=== PATIENT | female | born 1965 | race Caucasian/White ===

== ENCOUNTER 2019-04-05 09:44 | Outpatient (CLI) | payer BC, SELFPAY ==
[2019-04-05 11:00] LABS: Alanine Aminotransferase 20 U/L (0-33); Albumin Level 4.5 g/dL (3.5-5.2); Alkaline Phosphatase 64 IU/L (35-105); Anion Gap 13.7 (5-19); Aspartate Amino Transferase 18 U/L (0-32); Blood Urea Nitrogen 18 mg/dL (6-20); C Reactive Protein 0.6 mg/L (0.0-4.9); Calcium 9.4 mg/dL (8.5-10.5); Carbon Dioxide 28 mmol/L (22-29); Chloride 100 mmol/L (98-107); Globulin 2.8 g/dL (1.3-4.6); Glucose 113 mg/dL (74-109); Potassium 3.7 mmol/L (3.5-5.1); Sodium 138 mmol/L (136-145); Total Bilirubin 0.2 mg/dL (0.15-1.2); Total Protein 7.3 g/dL (6.6-8.7)
[2019-04-05 11:13] LABS: Erythrocyte Sedimentation Rate 13 mm/hr (0-15)
== END 2019-04-05 09:45 | disposition home or self-care (01) ==
LOC: LAB 09:48
PROVIDERS: Family Provider Family Medicine; PCP Family Medicine; Visit Provider Family Medicine
DX: G56.20 Lesion of ulnar nerve, unspecified upper limb (principal); G89.4 Chronic pain syndrome
CPT/HCPCS: 36415; 80053; 85651; 86038; 86140; 86431

== ENCOUNTER → 2019-04-19 10:20 | Outpatient (BNVA) | payer BC, SELFPAY | PROVIDERS: Family Provider Family Medicine; PCP Family Medicine; Visit Provider Nurse Practitioner Family | DX: J11.1 Influenza due to unidentified influenza virus with other respiratory manifestations (principal); J06.9 Acute upper respiratory infection, unspecified | CPT/HCPCS: 87804 ==

== ENCOUNTER → 2019-07-25 15:06 | Outpatient (BNVA) | payer BC, SELFPAY | PROVIDERS: Family Provider Family Medicine; PCP Family Medicine; Visit Provider Internal Medicine Rheumatology | DX: M25.50 Pain in unspecified joint (principal); Z79.899 Other long term (current) drug therapy; Z11.59 Encounter for screening for other viral diseases; Z11.1 Encounter for screening for respiratory tuberculosis; M79.7 Fibromyalgia; Z72.89 Other problems related to lifestyle | CPT/HCPCS: 36415; 80076; 82306; 82565; 85025; 85651; 86038; 86140; 86480; 86704; 86803; 87340; 99204 ==

== ENCOUNTER 2019-07-26 14:27 | Outpatient (CLI) | payer BC, SELFPAY ==
--- NOTE | 2019-07-26 14:35 | XR_ITS ---
WS: [id number] PROCEDURE: XR chest 2V* [id number] CLINICAL INFORMATION: inflammatory arthritis COMPARISON: February 26, 2018 FINDINGS: Heart: Normal cardiac silhouette. Lungs: Mild chronic emphysematous changes. No acute pulmonary infiltrates. No focal pneumonia. Bones: Postoperative changes lower cervical spine. XR/XR chest 2V* [id number] IMPRESSION: Mild chronic emphysematous changes. No acute chest findings.
--- NOTE | 2019-07-26 14:35 | XR_ITS ---
WS: [id number] HAND RIGHT TECHNIQUE: 3 views of the right hand CLINICAL INFORMATION: inflammatory arthritis COMPARISON: None. FINDINGS: Normal metacarpals. Normal MCP joint. Metacarpal heads are normal in appearance. Normal PIP and DIP j oints. No significant erosive changes. Radiocarpal joint: Normal. Carpal bones: Normal. XR/XR hand RT min 3V* [id number] IMPRESSION: No significant erosive changes.
--- NOTE | 2019-07-26 14:35 | XR_ITS ---
WS: [id number] FOOT LEFT TECHNIQUE: 3 views of the left foot CLINICAL INFORMATION: inflammatory arthritis COMPARISON: None. FINDINGS: No evidence of acute fracture or dislocation. Normal tarsal metatarsal alignment. Normal calcaneus. N ormal visualized talar dome. No significant erosive changes. Plantar calcaneal spurring. IMPRESSION: No significant erosive changes.
--- NOTE | 2019-07-26 14:35 | XR_ITS ---
WS: [id number] FOOT RIGHT TECHNIQUE: 3 views of the right foot CLINICAL INFORMATION: inflammatory arthritis COMPARISON: None. FINDINGS: No evidence of acute fracture or dislocation. Normal tarsal metatarsal alignment. Normal calcaneus. N ormal visualized talar dome. Plantar calcaneal spurring. IMPRESSION: No significant erosive changes.
--- NOTE | 2019-07-26 14:35 | XR_ITS ---
WS: [id number] HAND LEFT TECHNIQUE: 3 views of the left hand CLINICAL INFORMATION: inflammatory arthritis COMPARISON: None. FINDINGS: Normal metacarpals. Normal MCP joint. Metacarpal heads are normal in appearance. Normal PIP and DIP j oints. No significant erosive changes. Radiocarpal joint: Normal. Carpal bones: Normal. XR/XR hand LT min 3V* [id number] IMPRESSION: No significant erosive changes.
== END 2019-07-26 14:28 | disposition home or self-care (01) ==
LOC: RADWPI 14:30
PROVIDERS: Family Provider Family Medicine; PCP Family Medicine; Visit Provider Internal Medicine Rheumatology
DX: M13.89 Other specified arthritis, multiple sites
CPT/HCPCS: 71046; 73130; 73630

== ENCOUNTER → 2019-08-30 13:50 | Outpatient (BNVA) | payer BC, SELFPAY | PROVIDERS: Family Provider Family Medicine; PCP Family Medicine; Visit Provider Internal Medicine Rheumatology | DX: M79.7 Fibromyalgia (principal); M25.50 Pain in unspecified joint; Z79.899 Other long term (current) drug therapy | CPT/HCPCS: 99214 ==

== ENCOUNTER 2019-10-04 10:24 | Outpatient (CLI) | payer BC, SELFPAY ==
[2019-10-04 11:22] LABS: Alanine Aminotransferase 35 U/L (0-33); Albumin Level 4.4 g/dL (3.5-5.2); Alkaline Phosphatase 58 IU/L (35-105); Aspartate Amino Transferase 27 U/L (0-32); Cholesterol 143 mg/dL (0-200); HDL Cholesterol 51 mg/dL (60-100); LDL Cholesterol Calculated 75 mg/dL (50-129); LDL HDL Ratio 1.47 RATIO (0.00-3.22); Total Bilirubin 0.3 mg/dL (0.15-1.2); Total Protein 7.4 g/dL (6.6-8.7); Triglycerides 85 mg/dL (0-150)
== END 2019-10-04 10:25 | disposition home or self-care (01) ==
LOC: LAB 10:30
PROVIDERS: PCP Family Medicine; Visit Provider Internal Medicine Cardiovascular Disease
DX: E78.2 Mixed hyperlipidemia (principal); I10 Essential (primary) hypertension
CPT/HCPCS: 80061; 80076

== ENCOUNTER 2019-10-08 20:00 | Outpatient (CLI) | payer BC, SELFPAY | END 2019-10-08 20:01 | disposition home or self-care (01) | LOC: SLEEP 10-09 10:41 | PROVIDERS: PCP Family Medicine; Visit Provider Internal Medicine Rheumatology | DX: G47.30 Sleep apnea, unspecified (principal) | CPT/HCPCS: 95810 ==

== ENCOUNTER 2019-10-22 11:16 | Outpatient (CLI) | payer BC, SELFPAY ==
[2019-10-22 12:36] LABS: Thyroid Stimulating Hormone 0.11 uIU/mL (0.27-4.20)
[2019-10-22 12:53] LABS: Hepatitis B Core IgM Non-Reactive (Nonreactive); Hepatitis B Surface Antigen Non-Reactive (Nonreactive); Hepatitis C Virus Antibody Non-Reactive (Nonreactive)
== END 2019-10-22 11:17 | disposition home or self-care (01) ==
LOC: LAB 11:18
PROVIDERS: PCP Family Medicine; Visit Provider Family Medicine
DX: Z11.59 Encounter for screening for other viral diseases (principal); E03.9 Hypothyroidism, unspecified
CPT/HCPCS: 84443; 86705; 86803; 87340

== ENCOUNTER 2019-10-25 13:32 | Outpatient (CLI) | payer BC, SELFPAY ==
--- NOTE | 2019-10-25 13:44 | USCV_ITS ---
July, Age: 54 Gender: F : 1965 Exam Date: 10/25/2019 13:54 Ordering Phys: NOT ON FILE, DOCTOR XX Technologist: Gwen Brown Exam Location: [facility] – [place] Indication: LLE EDEMA; HX DVT PROCEDURES: Venous duplex imaging was performed in only the left lower extremity. The following venous structures were evaluated: common femoral vein, profunda vein, proximal portion of the greater saphenous vein, superficial femoral vein, and the popliteal vein. In addition, the posterior tibial and peroneal trunk were evaluated. FINDINGS: Normal 2-D Doppler and augmentation and compressibility throughout the lower extremity venous structures. Additional imaging through the proximal calf veins also reveals no thrombus. Limited evaluation of the greater saphenous vein is patent with no thrombus.. CONCLUSIONS No evidence of left lower extremity DVT. Álvaro Cunha MD (Electronically Signed) Final Date: 25 October 2019 16:13 S KARLIED
== END 2019-10-25 13:33 | disposition home or self-care (01) ==
LOC: RAD 13:38
PROVIDERS: PCP Family Medicine; Visit Provider Physician Assistant
DX: R60.0 Localized edema (principal)
CPT/HCPCS: 93971

== ENCOUNTER 2019-11-13 15:35 | Outpatient (CLI) | payer BC, SELFPAY ==
[2019-11-13 15:59] LABS: Basophils % 0.4 %; Eosinophils # 0.1 10^3/uL (0.0-0.8); Eosinophils % 2.1 %; Hematocrit 40.9 % (37.0-47.0); Hemoglobin 13.5 g/dL (11.5-15.3); Lymphocytes # 1.8 10^3/uL (0.8-4.8); Lymphocytes % 33.3 %; Mean Corpuscular Hemoglobin 29.8 pg (28.0-34.0); Mean Corpuscular Volume 90.3 fL (81-99); Mean Platelet Volume 9.8 fL (7.4-10.4); Monocytes # 0.5 10^3/uL (0.2-0.9); Monocytes % 8.7 %; Neutrophils # 2.94 10^3/uL (1.8-7.7); Neutrophils % 55.3 %; Nucleated Red Blood Cells % 0 %; Platelet Count 279 10^3/cmm (130-400); Red Blood Count 4.53 10^6/uL (4.1-5.3); Red Cell Distribution Width 11.9 % (12.1-15.1); White Blood Count 5.3 10^3/uL (4.0-10.0)
[2019-11-14 16:32] LABS: Immunoglobulin E 127 kU/L (<OR=114)
[2019-11-15 15:47] LABS: Cat Dander (E1) Ige <0.10 kU/L; Cat Dander Class 0; Dog Dander (E5) Ige <0.10 kU/L; Dog Dander Class 0
[2019-11-15 16:12] LABS: Alternaria Alternata (M6) Ige 0.48 kU/L; Alternaria Class 1; Bermuda Class 0; Bermuda Grass (G2) Ige <0.10 kU/L; Common Ragweed (Short) (W1) Ig 0.33 kU/L; D. Farinae Class 0/1; Dermatophagoides Class 0/1; Dermatophagoides Farinae (D2) 0.13 kU/L; Dermatophagoides Pteronyssinus 0.14 kU/L; Elm (T8) Ige <0.10 kU/L; Elm Class 0; English Plantain (W9) Ige <0.10 kU/L; English Plantain Class 0; House Dust (Greer) (H1) Ige <0.10 kU/L; House Dust (Hollister- Stier) <0.10 kU/L; House Dust Class 0; Immunoglobulin E 127 kU/L (<OR=114); Johnson Grass (G10) Ige <0.10 kU/L; Johnson Grass Cl 0; June Grass Class 0/1; June Grass(Kentucky Blue) (G8) 0.11 kU/L; Lamb'S Quarters (Goose Foot) <0.10 kU/L; Lamb'S Quarters Class 0; Maple (Box Elder) (T1) Ige <0.10 kU/L; Maple Class 0; Meadow Fescue (G4) Ige <0.10 kU/L; Meadow Fescue Class 0; Mucor Racemosus Class 0; Oak (T7) Ige <0.10 kU/L; Oak Class 0; Penicillium Class 0; Penicillium Notatum (M1) Ige <0.10 kU/L; Perennial Rye Grass (G5) Ige <0.10 kU/L; Perennial Rye Grass Class 0; Ragweeed Class 0/1; Rough Marsh Elder (W16) Ige <0.10 kU/L; Rough Marsh Elder Class 0; Sweet Vernal Class 0/1; Sweet Vernal Grass (G1) Ige 0.12 kU/L; Timothy Grass (G6) Ige <0.10 kU/L; Timothy Grass Class 0
[2019-11-15 19:07] LABS: Aspergillus Fumigatus, Igg Ab, 32.5 mg/L (<=102)
== END 2019-11-13 15:36 | disposition home or self-care (01) ==
LOC: LAB 15:38
PROVIDERS: PCP Family Medicine; Visit Provider Internal Medicine Pulmonary Disease
DX: J44.9 Chronic obstructive pulmonary disease, unspecified (principal); R06.02 Shortness of breath
CPT/HCPCS: 82785; 85025; 86003

== ENCOUNTER 2019-11-27 20:00 | Outpatient (CLI) | payer BC, SELFPAY | END 2019-11-27 20:01 | disposition home or self-care (01) | LOC: SLEEP 11-28 09:29 | PROVIDERS: PCP Family Medicine; Visit Provider Internal Medicine Pulmonary Disease | DX: G47.33 Obstructive sleep apnea (adult) (pediatric) (principal) | CPT/HCPCS: 95811 ==

== ENCOUNTER → 2019-12-05 13:54 | Outpatient (BNVA) | payer BC, SELFPAY | PROVIDERS: PCP Family Medicine; Visit Provider Internal Medicine Rheumatology | DX: M19.90 Unspecified osteoarthritis, unspecified site (principal); Z79.899 Other long term (current) drug therapy; M79.7 Fibromyalgia; G47.33 Obstructive sleep apnea (adult) (pediatric) | CPT/HCPCS: 99214 ==

== ENCOUNTER → 2019-12-10 11:16 | Outpatient (BNVA) | payer BC, SELFPAY | PROVIDERS: PCP Family Medicine; Visit Provider Internal Medicine | DX: Z20.828 Contact with and (suspected) exposure to other viral communicable diseases (principal) | CPT/HCPCS: 87635 ==

== ENCOUNTER 2019-12-12 08:47 | Outpatient (CLI) | payer BC, SELFPAY ==
--- NOTE | 2019-12-12 10:15 | USCV_ITS ---
July, Age: 54 Gender: F : 1965 Exam Date: 12/12/2019 09:54 Ordering Phys: Ron Pantoja MD Technologist: Maegan Villegas Exam Location: [facility] – [place] Indication: COPD, ASTHMA BP: / HR: 79 Rhythm: Sinus Technical Quality: Adequate MEASUREMENTS (Male / Female) Normal Values 2D ECHO LV Diastolic Diameter PLAX 3.9 cm 4.2 - 5.9 / 3.9 - 5.3 cm LV Systolic Diameter PLAX 2.1 cm IVS Diastolic Thickness 1.0 cm 0.6 - 1.0 / 0.6 - 0.9 cm IVS Systolic Thickness 1.5 cm LVPW Diastolic Thickness 0.9 cm 0.6 - 1.0 / 0.6 - 0.9 cm LVPW Systolic Thickness 1.4 cm LVOT Diameter 2.0 cm LV Ejection Fraction 2D Teich 77.1 % LV Ejection Fraction MOD 2C 75.1 % LV Ejection Fraction 2C AL 75.2 % LA Diameter 3.4 cm LA Width 2.0 cm LA Height 4.4 cm RA Width 3.4 cm RA Height 3.7 cm M-MODE LV Diastolic Diameter MM 4.9 cm 4.2 - 5.9 / 3.9 - 5.3 cm LV Systolic Diameter MM 3.2 cm LV Ejection Fraction MM Teich 64.3 % IVS Diastolic Thickness MM 0.9 cm 0.6 - 1.0 / 0.6 - 0.9 cm IVS Systolic Thickness MM 1.6 cm LVPW Diastolic Thickness MM 0.8 cm 0.6 - 1.0 / 0.6 - 0.9 cm LVPW Systolic Thickness MM 1.7 cm Aortic Annulus Diameter 2.7 cm LA Ao Ratio MM 1.3 MV E Point Septal Separation 0.7 cm DOPPLER AV Peak Velocity 99.0 cm/s LVOT Peak Velocity 95.0 cm/s AV Area Cont Eq vti 2.9 cm squared AV Area Cont Eq pk 3.0 cm squared MV Peak Velocity 83.0 cm/s MV Area PHT 3.5 cm squared Mitral E to A Ratio 1.4 MV E' Velocity 49.0 cm/s Mitral E to MV E' Ratio 9.1 Mitral E to LV E' Lateral Ratio 8.8 Mitral E to LV E' Septal Ratio 9.5 TR Peak Velocity 75.0 cm/s TR Peak Gradient 2.3 mmHg Right Atrial Pressure 3.0 mmHg Pulmonary Artery Systolic Pressu 5.3 mmHg PV Peak Velocity 99.0 cm/s RV Acceleration Time 0.1 s FINDINGS Left Ventricle Normal left ventricular size and systolic function, EF 82 %. No regional wall motion abnormalities. Right Ventricle The right ventricle is normal in size and function. Right Atrium The right atrium is normal in size. Left Atrium The left atrium is normal in size. Mitral Valve Mild mitral valve regurgitation. Aortic Valve No gross abnormalities noted Tricuspid Valve No gross abnormalities noted Pulmonic Valve Pulmonic valve not well visualized. Pericardium Normal pericardium without effusion. Aorta Normal ascending aorta dimension. CONCLUSIONS Normal left ventricular size and systolic function, EF 82 %. No gross wall motion normalities Mild mitral valve regurgitation. There is no pericardial effusion. There are no intracardiac masses. No previous study is available for comparison. Dr Key Alvarado MD FACC (Electronically Signed) Final Date: 12 December 2019 18:54 S
--- NOTE | 2019-12-12 11:12 | PFTS_ITS ---
Date of Study:12/12/19 Date of Dictation: MECHANICS: Forced vital capacity (FVC) is normal. Forced expiratory volume in one second (FEV1) is normal. FEV1/FVC is normal. FLOW VOLUME LOOP: Normal. LUNG VOLUMES: Total lung capacity (TLC) is normal. Residual volume (RV) is elevated. DIFFUSING CAPACITY FOR CARBON MONOXIDE: Normal INTERPRETATION: The pulmonary function tests are normal. The lung volumes are suggestive of mild air trapping. Gas exchange (DLCO) is normal. MTDD
== END 2019-12-12 08:48 | disposition home or self-care (01) ==
LOC: RT 08:48
PROVIDERS: PCP Family Medicine; Visit Provider Internal Medicine Pulmonary Disease
DX: J44.9 Chronic obstructive pulmonary disease, unspecified (principal); R07.9 Chest pain, unspecified
CPT/HCPCS: 93306; 94010; 94726; 94729

== ENCOUNTER → 2020-01-15 07:45 | Outpatient (BNVA) | payer BC, SELFPAY | PROVIDERS: PCP Family Medicine; Visit Provider Dermatology | DX: D48.9 Neoplasm of uncertain behavior, unspecified (principal) | CPT/HCPCS: 88304 ==

== ENCOUNTER 2020-01-21 14:48 | Emergency (ER) | payer BC, SELFPAY ==
[2020-01-21 15:00] VITALS: BP 140/91; PULSE 79; RESP 25; TEMP 36.5; O2SAT 97; BMI 39.6
--- NOTE | 2020-01-21 16:20 | W.ED.SOB ---
HPI - SOB/Dyspnea General: Chief Complaint: Shortness of Breath/Dyspnea Stated Complaint: SOB/Body Aches/Cough/Nausea Time Seen by Provider: 01/21/20 15:10 Source: patient Mode of arrival: ambulatory Limitations: no limitations History of Present Illness: HPI Narrative: 54-year-old female patient presents to the emergency department with chest congestion, pain in her chest with cough x7 days. She reports went to urgent care 2 days ago, received Rocephin, doxycycline, steroids and inhaler. She is currently receiving hydroxychloroquine for rheumatoid disease. States difficulty breathing with cough and shortness of breath with exertion. States gets this every year, bronchial pneumonia, but is not improving despite use of antibiotics. She denies fever chills, denies nausea vomiting. MD elicited complaint: shortness of breath and cough Context: recent illness Timing: intermittent and progressively worsening Severity: moderate Exacerbating factors: exertion and other (Cough) Relieving factors: rest and bronchodilators Associated symptoms: Reports chest congestion and cough; Deny abdominal pain, chest pain, diaphoresis, fever(s), nausea, palpitations or vomiting Treatment prior to arrival: bronchodilator Review of Systems General: Reports: 10 or more systems reviewed and unremarkable except in HPI and below Const: Denies: fever(s), chills or diaphoresis Eyes: Denies: blurry vision or eye redness ENMT: Denies: throat pain, dental pain or disequilibrium Card: Denies: chest pain, palpitations or irregular heart rhythm Resp: Reports: dyspnea, productive cough and chest congestion GI: Denies: abdominal pain, nausea or vomiting : Denies: difficulty voiding or dysuria Musc: Denies: back pain Skin/Breast: Denies: rash or pruritus Neuro: Denies: headache(s), weakness in extremities or behavioral changes Psych: Denies: anxiety or depression Anton/Lymph: Denies: easy bruising PFS ED PFSH: Medical History (Updated 01/21/20 @ 16:24 by OCTAVIA Hughes) COPD (chronic obstructive pulmonary disease) 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 Encounter for screening for other viral diseases Fibromyalgia Good's disease High risk medication use History of blood clots Hypertension Immunization counseling Inflammatory arthritis Joint pain MRSA infection cut out infection on abdomen 2006 Surgical History H/O spinal fusion c3/4, c4/5, c5/6 H/O thyroidectomy x2 History of cholecystectomy History of elbow surgery bilateral x2 History of hand surgery bilateral x3 each History of hysterectomy with BSO Family History Other CAD (coronary artery disease) Cancer Chronic kidney disease (CKD) Hypertension Leukemia Rheumatoid arthritis Stroke Denies family history of Hyperlipidemia Systemic lupus erythematosus (SLE) in adult Lung disease Social History Smoking and tobacco status: never smoked Second hand smoke exposure: Yes Smoking risk assessment/counseling performed?: No Alcohol intake: former Lives independently: Yes Household members: spouse Marital status: Current occupational status: employed Current occupation: [employer] History of recent travel: No Current gender identity: Female Physical Exam Const: COMMON NORMALS: no acute distress, patient oriented x3, healthy appearing and alert GENERAL APPEARANCE: cooperative, comfortable and well hydrated HENMT: COMMON NORMALS: normocephalic, Normal external nose present and moist oral mucous membranes HEAD & SCALP: normocephalic NOSE: Normal external nose present Eye: COMMON NORMALS: Equal, round and reactive pupils present and EOMs intact bilaterally GENERAL EYE: appearance normal, both eyes and all related structures PUPIL: Yes Equal, round and reactive pupils present Neck/C-Spine: COMMON NORMALS: full ROM and no lymphadenopathy GENERAL: Yes normal visual inspection and Yes trachea midline CERVICAL SPINE: Yes cervical ROM normal Lymph: LYMPHATIC: no lymphadenopathy noted Chest: COMMONS NORMALS: normal inspection of the chest Resp: COMMON NORMALS: normal respiratory effort and clear to auscultation bilaterally EFFORT & INSPECTION: Yes able to speak in complete sentences AUSCULTATION: clear to auscultation bilaterally Cardio: COMMON NORMALS: regular rhythm, S1 normal heart sound present, S2 normal heart sound present and Peripheral pulses 2+ throughout RHYTHM: regular rhythm HEART SOUNDS: S1 normal heart sound present and S2 normal heart sound present PERIPHERAL PULSES: Peripheral pulses 2+ throughout GI: COMMON NORMALS: Soft to palpation and non-tender INSPECTION: Yes normal to inspection PALPATION: Yes Soft to palpation : COMMON NORMALS: Yes no CVA tenderness BLADDER/KIDNEY EXAM: Yes no CVA tenderness Back/Pelvis: COMMON NORMALS: no CVA tenderness and thoracic and lumbar spine normal to inspection Extremity: COMMON NORMALS: normal to inspection and capillary refill normal Neuro: COMMON NORMALS: patient oriented x3 and no focal motor deficits SENSORIUM/ORIENTATION: Yes alert Psych: COMMON NORMALS: mental status grossly normal, Normal thought process present and cooperative ACTIVITY/MOTOR BEHAVIOR: Yes appropriate eye contact THOUGHT PROCESS: Normal thought process present Skin: COMMON NORMALS: no rashes or lesions noted and turgor normal GENERAL SKIN EXAM: no rashes or lesions noted and turgor normal Course Vital Signs: Vital signs: Vital Signs Temperature 97.7 F 01/21/20 15:00 Pulse Rate 73 01/21/20 16:47 Respiratory Rate 14 01/21/20 16:47 Blood Pressure 144/90 01/21/20 16:47 Pulse Oximetry 97 01/21/20 16:47 Discharge Plan Discharge Patient Disposition: Home Clinical Impression: Suspected 2019 novel coronavirus infection Acute bronchitis Qualifiers: Bronchitis organism: unspecified organism Qualified Code(s): J20.9 - Acute bronchitis, unspecified Condition: Stable Prescriptions: New benzonatate 200 mg capsule 200 mg PO TID PRN (Reason: cough) Qty: 20 RF: 0 No Action losartan 25 mg tablet 25 mg PO DAILY RF: 0 tramadol 50 mg tablet 50 mg PO BID PRNRF: 0 hydrochlorothiazide 12.5 mg capsule 25 mg PO DAILY RF: 0 Proair Digihaler 90 mcg/actuation aero powdr breath act w/sensor 2 inh INHALATION Q6H PRNRF: 0 albuterol sulfate 2.5 mg /3 mL (0.083 %) solution for nebulization 2.5 mg INHALATION Q4H PRN (Reason: shortness of breath or wheezing) Qty: 3 RF: 0 pregabalin [Lyrica] 75 mg capsule See Rx Instructions PO BID Qty: 60 RF: 3 hydroxychloroquine 200 mg tablet 200 mg PO BID Qty: 60 RF: 3 diclofenac sodium 1 % gel 2 gm TOPICAL QID Qty: 200 RF: 2 cholecalciferol (vitamin D3) 50 mcg (2,000 unit) tablet 2,000 unit PO DAILY Qty: 30 RF: 3 lidocaine-epinephrine 1 %-1:100,000 solution 2 ml SUBCUT ONCE Qty: 20 RF: 0 lidocaine (PF) 10 mg/mL (1 %) solution 1 ml IM ONCE Qty: 1 RF: 0 budesonide-formoterol [Symbicort] 160-4.5 mcg/actuation HFA aerosol inhaler 2 puff INHALATION BID Qty: 10.2 RF: 3 Spiriva Respimat 2.5 mcg/actuation mist 2 puff INHALATION DAILY Qty: 4 RF: 3 levothyroxine 125 mcg capsule 125 mcg PO DAILY Qty: 30 RF: 2 doxycycline hyclate 100 mg capsule 100 mg PO BID 7 Days Qty: 14 RF: 0 prednisone 20 mg tablet See Rx Instructions PO DAILY Qty: 19 RF: 0 alprazolam 0.5 mg tablet 0.5 mg PO DAILY PRNRF: 0 pantoprazole 40 mg tablet,delayed release (DR/EC) 40 mg PO DAILY Qty: 30 RF: 2 montelukast [Singulair] 10 mg tablet 10 mg PO DAILY Qty: 30 RF: 2 atorvastatin PO RF: 0 Discharge Orders: Discharge Order (Routine); Ordered 01/21/20 Ordered By: Olga Maciel Referrals: Bacilio Toro, DO [Primary Care Provider] - Discharge Activity: Limit activity as instructed Patient Instructions: Acute Bronchitis (ED), Viral Syndrome (ED) Activity Restrictions/Additional Instructions: Monitor your oxygen saturation with use of pulse ox that has been provided. Normal oxygenation level is 92 to 100%. If your oxygen drops to 9091%, take some deep breaths to see if oxygen improves. If this does not occur return to the emergency department. If your oxygen level falls below 90% return to the emergency department immediately. Follow-up with your primary care provider this week without fail. Social service will be contacting you with an appointment to help with this process. Maintain quarantine until your Covid test is known No work until released by your primary care physician You will need to drink lots of fluids as fluid requirement will increase due to disease process Remain at home, rest, avoid exertional activity while ill. Continue antibiotics and prednisone/albuterol inhaler as recommended. Coding Level of Care Code ED Dog Day Care Attendant for Adela Fwd Exam Comprehensive
[2020-01-21 16:47] VITALS: BP 144/90; PULSE 73; RESP 14; O2SAT 97
--- NOTE | 2020-01-21 17:59 | ECG_ITS ---
[facility] Test Date: 2020-01-21 Pat Name: Shannan Weber Department: Room: Gender: Female Hand Stripper: : 1965 Requested By: Olga Lemus Order Number: [id number] Hernandez MD: Eloisa Kang M.D. Measurements Intervals [place] Rate: 75 P: 76 OR: 188 QRS: -22 QRSD: 85 T: -3 QT: 350 QTc: 391 Interpretive Statements SINUS RHYTHM LOW QRS VOLTAGE IN PRECORDIAL LEADS MODERATE VOLTAGE CRITERIA FOR LVH, CONSIDER NORMAL VARIANT POSSIBLE ANTERIOR MYOCARDIAL INFARCTION, PROBABLY OLD Compared to ECG 02/26/2018 00:06:24 Sinus arrhythmia no longer present Myocardial infarct finding still present Electronically Signed On 01-21-2020 18:42:58 [employer] by Eloisa Kang M.D. [id number]
--- NOTE | 2020-01-22 13:35 | DCPLANNER ---
corporate real estate manager had message to schedule a follow up appointment for patient with [facility]. corporate real estate manager called the clinic, spoke with Promise, a followup appointment was scheduled for , January 24, 2020 at 10:40 with Helen Ramirez, this will be a phone visit. Clinic will call patient with appointment information.
[2020-01-23 13:16] LABS: Coronavirus Lab Test PTC Negative
--- NOTE | 2020-03-18 09:14 | DCPLANNER ---
Patient had a follow up appointment scheduled for 01.24.20 with [facility] - patient did attend appointment.
== END 2020-01-21 16:48 | disposition home or self-care (01) ==
PROVIDERS: Emergency Provider Nurse Practitioner Family; PCP Family Medicine
DX: Z20.828 Contact with and (suspected) exposure to other viral communicable diseases (principal); J44.0 Chronic obstructive pulmonary disease with (acute) lower respiratory infection; J20.9 Acute bronchitis, unspecified; I10 Essential (primary) hypertension; Z77.22 Contact with and (suspected) exposure to environmental tobacco smoke (acute) (chronic)
CPT/HCPCS: 12345; 87635; 93005; 99281; 99283

== ENCOUNTER 2020-01-22 10:13 | Emergency (ER) | payer BC, SELFPAY ==
[2020-01-22 10:26] VITALS: BP 112/77; PULSE 91; RESP 18; TEMP 36.7; O2SAT 95; BMI 40.7
--- NOTE | 2020-01-22 10:46 | XR_ITS ---
WS: [id number] XR chest 1V portable [id number] REASON FOR EXAM: low sats, covid precautions FINDINGS: Chest is unchanged compared to previous examination of 07/26/2019. Minimal tortuosity thoracic aorta. Normal heart size. Overall pleural pericardial reaction along the left heart border. No active pulmonary parenchymal pleural disease. Mild changes of degenerative spondylosis in the mid and lower thoracic spine. XR/XR chest 1V portable [id number] IMPRESSION: No acute chest abnormality.
[2020-01-22 10:47] VITALS: O2SAT 95
--- NOTE | 2020-01-22 10:47 | W.ED.COVID ---
HPI - COVID General: Chief Complaint: COVID symptoms Stated Complaint: O2 LEVEL BELOW 90/TESTED YESTERDAY Time Seen by Provider: 01/22/20 10:40 Triage information: Has fever, cough or shortness of breath. No known COVID + exposure last 14 days History of Present Illness: HPI Narrative: Pleasant lady that arise from home said her sats dropped below 90% this morning she was seen here in the ER years and given a pulse oximeter. Did have a Covid test done. Patient denies cough diarrhea fever chills said she really did not feel short of breath presently but she had started short of breath earlier this week seen in urgent care put on doxycycline steroids because she said that happens to her couple 3 times a year. She has allergy problems. 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 Sats are maintaining upper 90s here MD complaint: has COVID symptoms Prior covid testing: yes, results pending at [facility] [place] COVID 19 common symptoms: positive dyspnea; negative fever(s), chills, body aches, headache(s), throat pain, nasal congestion, nausea or vomiting COVID 19 other sytmptoms: positive other concerning symptoms (States that her O2 sat was 89 to 90% at home this morning); negative chest pain Onset (ago): day(s) Severity: mild Pertinent comorbid conditions: immunocompromised state Treatment prior to arrival: antibiotics, steroids and other COVID Results: Nasal/Oral Coronavirus 2019 PCR Negative 12/10/19 11:16 12/10/19 Review of Systems Const: Denies: fever(s), chills or body aches Eyes: Denies: change in vision or blurry vision ENMT: Denies: throat pain or nasal congestion Card: Denies: chest pain or dyspnea on exertion Resp: Reports: dyspnea GI: Denies: abdominal pain, nausea or vomiting Musc: Denies: extremity pain Skin/Breast: Denies: rash Neuro: Denies: headache(s) Psych: Denies: anxiety or depression Anton/Lymph: Denies: easy bruising [facility] ED PFSH: Medical History (Updated 01/21/20 @ 16:24 by OCTAVIA Hughes) COPD (chronic obstructive pulmonary disease) 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 Encounter for screening for other viral diseases Fibromyalgia Good's disease High risk medication use History of blood clots Hypertension Immunization counseling Inflammatory arthritis Joint pain MRSA infection cut out infection on abdomen 2005 Surgical History H/O spinal fusion c3/4, c4/5, c5/6 H/O thyroidectomy x2 History of cholecystectomy History of elbow surgery bilateral x2 History of hand surgery bilateral x3 each History of hysterectomy with BSO Family History Other CAD (coronary artery disease) Cancer Chronic kidney disease (CKD) Hypertension Leukemia Rheumatoid arthritis Stroke Denies family history of Hyperlipidemia Systemic lupus erythematosus (SLE) in adult Lung disease Social History Smoking and tobacco status: never smoked Second hand smoke exposure: Yes Smoking risk assessment/counseling performed?: No Alcohol intake: former Lives independently: Yes Household members: spouse Marital status: Current occupational status: employed Current occupation: [employer] History of recent travel: No Current gender identity: Female Physical Exam Const: COMMON NORMALS: no acute distress, average body habitus and patient oriented x3 HENMT: COMMON NORMALS: normocephalic HEAD & SCALP: normal to inspection and normocephalic FACE & SINUS: normal facial exam Eye: COMMON NORMALS: conjunctivae normal GENERAL EYE: appearance normal, both eyes and all related structures CONJUNCTIVA: Yes conjunctivae normal Neck/C-Spine: COMMON NORMALS: no JVD Chest: COMMONS NORMALS: normal inspection of the chest Resp: COMMON NORMALS: normal respiratory effort and clear to auscultation bilaterally AUSCULTATION: clear to auscultation bilaterally Cardio: COMMON NORMALS: no JVD, regular rate and regular rhythm RATE: regular rate RHYTHM: regular rhythm GI: COMMON NORMALS: Normal to inspection, nondistended, normoactive bowel sounds present Extremity: COMMON NORMALS: normal to inspection and full ROM Neuro: COMMON NORMALS: patient oriented x3 Course Vital Signs: Vital signs: Vital Signs Temperature 98.1 F 01/22/20 10:26 Pulse Rate 91 01/22/20 10:26 Respiratory Rate 18 01/22/20 10:26 Blood Pressure 112/77 01/22/20 10:26 Pulse Oximetry 95 01/22/20 10:26 MDM - COVID MDM Narrative Medical decision making narrative: Dr. Naylor.man asked me to evaluate this patient and start the work-up Lab Data COVID Results: Nasal/Oral Coronavirus 2019 PCR Negative 12/10/19 11:16 12/10/19 Discharge Plan Discharge Prescriptions: No Action losartan 25 mg tablet 25 mg PO DAILY RF: 0 tramadol 50 mg tablet 50 mg PO BID PRNRF: 0 hydrochlorothiazide 12.5 mg capsule 25 mg PO DAILY RF: 0 Proair Digihaler 90 mcg/actuation aero powdr breath act w/sensor 2 inh INHALATION Q6H PRNRF: 0 albuterol sulfate 2.5 mg /3 mL (0.083 %) solution for nebulization 2.5 mg INHALATION Q4H PRN (Reason: shortness of breath or wheezing) Qty: 3 RF: 0 pregabalin [Lyrica] 75 mg capsule See Rx Instructions PO BID Qty: 60 RF: 3 hydroxychloroquine 200 mg tablet 200 mg PO BID Qty: 60 RF: 3 diclofenac sodium 1 % gel 2 gm TOPICAL QID Qty: 200 RF: 2 cholecalciferol (vitamin D3) 50 mcg (2,000 unit) tablet 2,000 unit PO DAILY Qty: 30 RF: 3 lidocaine-epinephrine 1 %-1:100,000 solution 2 ml SUBCUT ONCE Qty: 20 RF: 0 lidocaine (PF) 10 mg/mL (1 %) solution 1 ml IM ONCE Qty: 1 RF: 0 budesonide-formoterol [Symbicort] 160-4.5 mcg/actuation HFA aerosol inhaler 2 puff INHALATION BID Qty: 10.2 RF: 3 Spiriva Respimat 2.5 mcg/actuation mist 2 puff INHALATION DAILY Qty: 4 RF: 3 levothyroxine 125 mcg capsule 125 mcg PO DAILY Qty: 30 RF: 2 doxycycline hyclate 100 mg capsule 100 mg PO BID 7 Days Qty: 14 RF: 0 prednisone 20 mg tablet See Rx Instructions PO DAILY Qty: 19 RF: 0 alprazolam 0.5 mg tablet 0.5 mg PO DAILY PRNRF: 0 pantoprazole 40 mg tablet,delayed release (DR/EC) 40 mg PO DAILY Qty: 30 RF: 2 montelukast [Singulair] 10 mg tablet 10 mg PO DAILY Qty: 30 RF: 2 atorvastatin PO RF: 0 benzonatate 200 mg capsule 200 mg PO TID PRN (Reason: cough) Qty: 20 RF: 0 Coding Level of Care Code ED Office Mover for Chg Sarah
[2020-01-22 10:50] VITALS: BP 119/63; RESP 18; O2SAT 95
[2020-01-22 11:30] VITALS: BP 112/75; PULSE 84; RESP 14; O2SAT 95
--- NOTE | 2020-01-23 17:49 | PC.NURSE ---
pt contacted and informed of her covid results.
== END 2020-01-22 11:31 | disposition home or self-care (01) ==
PROVIDERS: Emergency Provider Nurse Practitioner Family; PCP Family Medicine
DX: R06.02 Shortness of breath (principal); R05 Cough; Z79.52 Long term (current) use of systemic steroids; J44.9 Chronic obstructive pulmonary disease, unspecified; I10 Essential (primary) hypertension; Z77.22 Contact with and (suspected) exposure to environmental tobacco smoke (acute) (chronic); Z86.14 Personal history of Methicillin resistant Staphylococcus aureus infection; R50.9 Fever, unspecified; Z86.711 Personal history of pulmonary embolism
CPT/HCPCS: 12345; 71045; 99281; 99282

== ENCOUNTER → 2020-01-28 14:57 | Outpatient (BNVA) | payer BC, SELFPAY | PROVIDERS: PCP Family Medicine; Visit Provider Internal Medicine | DX: E78.5 Hyperlipidemia, unspecified (principal); R07.9 Chest pain, unspecified | CPT/HCPCS: 80061 ==

== ENCOUNTER → 2020-01-29 15:53 | Outpatient (BNVA) | payer BC, SELFPAY | PROVIDERS: PCP Family Medicine; Referring Provider Internal Medicine Pulmonary Disease; Visit Provider Internal Medicine | DX: E03.9 Hypothyroidism, unspecified (principal); I10 Essential (primary) hypertension; R13.14 Dysphagia, pharyngoesophageal phase; Z98.890 Other specified postprocedural states | CPT/HCPCS: 99204 ==

== ENCOUNTER 2020-03-12 06:52 | Outpatient (CLI) | payer BC, SELFPAY ==
--- NOTE | 2020-03-12 07:16 | NMCV_ITS ---
NM karlos perf SPECT r/s* [id number] July, Age: 54 Gender: F : 1965 Exam Date: 03/12/2020 08:11 Ordering Phys: Moises Melton M.D ([email or web address]) Technologist: ROSHAN Christian Exam Location: [facility] Indications: CHEST PAIN STRESS TEST Please see separate stress test report in [facility] for full findings IMAGE PROTOCOL Rest/Stress 1 Lexiscan Day Radiopharmaceutical Dose (mCi) Administration Site Administered by Rest: Tc-99m 10.7 IV ROSHAN Orellana Sestamibi Stress:Tc-99m 32.3 IV ROSHAN Christian Sestamialex Rest: 12-Mar-2020 60 Discovery 630 Stress: 12-Mar-2020 30 Discovery 630 0.4mg Lexiscan. Images obtained in supine and prone position. SPECT RESULTS Technical Quality: Excellent Raw Data Analysis: Normal Image Corrections: No attenuation or motion correction applied Summed Stress Score: 1 Summed Rest Score: 1 Summed Difference Score: 0 PERFUSION FINDINGS There is homogenous radiotracer uptake throughout the myocardium. No evidence of perfusion defect is noted. FUNCTIONAL RESULTS (calculated via Gated SPECT) Stress Image LV EF (%): 70 Stress EDV (mL):69 TID: 1.21 Stress ESV (mL):21 FUNCTIONAL FINDINGS: There is normal left ventricular systolic function. IMPRESSIONS 1. Normal myocardial perfusion imaging with no evidence of ischemia. 2. LV systolic function is normal with EF of 70%. 3. Elevated transient ischemic dilation ratio of 1.2. Moises Melton MD (Electronically Signed) Final Date: 12 March 2020 15:47 S
--- NOTE | 2020-03-12 07:16 | ECG_ITS ---
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 Interpretive Statements NAME OF STUDY: LEXISCAN SESTAMIBI STRESS TEST INDICATION: [Chest Pain] Procedure: At the baseline, the blood pressure was 123/75 mmHg,with a heart rate of 79 bpm. The electrocardiogram showed a normal sinus rhythm, normal axis with normal ST and T's. The Lexiscan was infused over a duration of 20 seconds. A total of 0.4 mg of Lexiscan was infused. The stress phase was continued for a total of 5 minutes. Heart rate at the end of stress phase was 98 bpm, with a blood pressure of 149/88 mmHg. The EKG at the peak infusion revealed sinus rhythm with no significant ST-T wave changes. Sestamibi was injected 20 seconds after Lexiscan infusion. Blood pressure at the end of recovery phase was 156/83 mmHg, with a heart rate of 90 bpm. Conclusion: 1. Normal EKG response to Lexiscan infusion. 2. No Lexiscan induced chest pain or cardiac arrhythmia. 3. Normal blood pressure and heart rate response. 4. Sestamibi/sestamibi perfusion scan pending; see separate report. Electronically Signed On 03-29-2020 9:41:33 DISPENSER OPERATOR by Moises Melton M.D. [id number]
[2020-03-12 07:17] VITALS: BMI 35.4
[2020-03-12 08:53] VITALS: BP 159/90; PULSE 100
[2020-03-12] MEDS: regadenoson 0.4 Mg/5 ml Syringe IVP (08:53)
== END 2020-03-12 06:53 | disposition home or self-care (01) ==
LOC: CDL 06:54
PROVIDERS: PCP Family Medicine; Visit Provider Internal Medicine
DX: R07.9 Chest pain, unspecified (principal); I48.91 Unspecified atrial fibrillation
CPT/HCPCS: 78452; 93017; A9500; J2785

== ENCOUNTER 2020-03-31 12:31 | Outpatient (CLI) | payer BC, SELFPAY ==
--- NOTE | 2020-03-31 12:45 | US_ITS ---
WS: [id number] THYROID ULTRASOUND HISTORY: dysphagia, hx if thyroidectomy for goiter, assess recurrence COMPARISON: CTA 08/11/2017. By history patient is status post thyroidectomy. No definite thyroid tissue is identified. There is a soft tissue mass with low-level echoes and a few scattered cystic areas in the RIGHT neck which I be lieve is probably the submandibular gland measuring 3.2 x 1.4 x 3.1 cm. Hypoechoic nodule in the RIGH T neck measures 1.1 x 0.7 x 1.0 cm. No abnormality in the LEFT neck. US/US thyroid [id number] IMPRESSION: 1. Soft tissue masses in the RIGHT neck. These may be normal lymph nodes and t he submandibular gland. Recommend follow-up neck CT with IV contrast for better differentiation. 2. No thyroid tissue identified. Patient didn't provide a history of thyroidec liz.
[2020-03-31 14:59] LABS: Calcium 9.7 mg/dL (8.5-10.5); Parathyroid Hormone 32.6 pg/mL (15-65)
[2020-03-31 16:08] LABS: Free T4 Free Thyroxine 1.66 ng/dL (0.82-1.77); Thyroid Stimulating Hormone 0.31 uIU/mL (0.27-4.20)
== END 2020-03-31 12:32 | disposition home or self-care (01) ==
LOC: US 12:33
PROVIDERS: PCP Family Medicine; Visit Provider Internal Medicine
DX: E03.9 Hypothyroidism, unspecified (principal); Z98.890 Other specified postprocedural states; R13.10 Dysphagia, unspecified; R22.1 Localized swelling, mass and lump, neck
CPT/HCPCS: 36415; 76536; 82310; 83970; 84439; 84443

== ENCOUNTER → 2020-04-09 12:36 | Outpatient (BNVA) | payer BC, SELFPAY | PROVIDERS: PCP Family Medicine; Visit Provider Internal Medicine Rheumatology | DX: M15.9 Polyosteoarthritis, unspecified (principal); M79.7 Fibromyalgia; Z79.899 Other long term (current) drug therapy; G47.30 Sleep apnea, unspecified | CPT/HCPCS: 99214 ==

== ENCOUNTER 2020-04-15 13:29 | Outpatient (CLI) | payer BC, SELFPAY ==
--- NOTE | 2020-04-15 13:35 | CT_ITS ---
WS: [id number] CT NECK TECHNIQUE: Contrast-enhanced CT of the neck with coronal and sagittal reformatted images. CLINICAL INFORMATION: R22.1 - Localized swelling, mass and lump, neck COMPARISON: Ultrasound March 31, 2020 DLP: 2534.[address] scans at [facility] use at least one of these dose optimization techniques: automat ed exposure control; mA and/or kV adjustment per patient size (includes targeted exams where dose is matched to clinical indication); or iterative reconstruction. FINDINGS: Marker in the area of interest right neck. Normal underlying submandibular gland. A few inc idental normal sized lymph nodes not pathologically enlarged. Left submandibular gland is normal. Nor mal parotid glands. No cervical lymphadenopathy. Prior postoperative changes right thyroidectomy. Mastoid air cells and paranasal sinuses are well aerated. Normal parapharyngeal fat. Normal tongue ba se. Lung apices are well aerated. Partially visualized intracranial contents are normal. Normal poste rior fossa. Lung apices are well aerated. Straightening of the normal cervical lordosis. Anterior interbody cervical fusion C3-C6. Slight ante rolisthesis C2 on C3. Anterior fusion hardware at C4-5. CT/CT neck w con* [id number] IMPRESSION: 1. No evidence of pathologic mass or lesion in the area of palpable concern ri ght neck. 2. Normal underlying submandibular gland and normal sized lymph nodes. 3. Salivary glands otherwise unremarkable. 4. No cervical lymphadenopathy. 5. Prior right thyroidectomy. 6. No other significant findings.
[2020-04-15] MEDS: iohexol 300 mg/mL 100 mL Btl IV (14:00)
== END 2020-04-15 13:30 | disposition home or self-care (01) ==
LOC: RADWPI 13:35
PROVIDERS: PCP Family Medicine; Visit Provider Internal Medicine
DX: R22.1 Localized swelling, mass and lump, neck (principal); R13.14 Dysphagia, pharyngoesophageal phase; E89.0 Postprocedural hypothyroidism
CPT/HCPCS: 70491; Q9967

== ENCOUNTER 2020-04-17 14:07 | Outpatient (CLI) | payer BC, SELFPAY ==
[2020-04-17 17:11] LABS: Estmated Average Glucose 105; Hemoglobin A1C 5.3 % (4.0-6.0)
== END 2020-04-17 14:08 | disposition home or self-care (01) ==
PROVIDERS: PCP Family Medicine; Visit Provider Internal Medicine
DX: E66.01 Morbid (severe) obesity due to excess calories (principal); Z68.41 Body mass index [BMI] 40.0-44.9, adult; E89.0 Postprocedural hypothyroidism; R13.14 Dysphagia, pharyngoesophageal phase; Z13.1 Encounter for screening for diabetes mellitus
CPT/HCPCS: 36415; 83036; 99214

== ENCOUNTER 2020-05-01 09:04 | Outpatient (CLI) | payer BC, SELFPAY ==
[2020-05-01 09:45] LABS: Basophils % 0.4 %; Eosinophils # 0.1 10^3/uL (0.0-0.8); Eosinophils % 2.7 %; Hematocrit 40.7 % (37.0-47.0); Hemoglobin 13.4 g/dL (11.5-15.3); Lymphocytes # 1.5 10^3/uL (0.8-4.8); Lymphocytes % 34.1 %; Mean Corpuscular HGB Conc 32.9 g/dL (30.0-36.0); Mean Corpuscular Hemoglobin 29.1 pg (28.0-34.0); Mean Corpuscular Volume 88.3 fL (81-99); Mean Platelet Volume 9.9 fL (7.4-10.4); Monocytes # 0.4 10^3/uL (0.2-0.9); Monocytes % 8.2 %; Neutrophils # 2.45 10^3/uL (1.8-7.7); Neutrophils % 54.4 %; Nucleated Red Blood Cells % 0 %; Platelet Count 269 10^3/cmm (130-400); Red Blood Count 4.61 10^6/uL (4.1-5.3); Red Cell Distribution Width 12.1 % (12.1-15.1); White Blood Count 4.5 10^3/uL (4.0-10.0)
[2020-05-01 09:58] LABS: Alanine Aminotransferase 27 U/L (0-33); Albumin Level 4.6 g/dL (3.5-5.2); Alkaline Phosphatase 76 IU/L (35-105); Aspartate Amino Transferase 24 U/L (0-32); C Reactive Protein 0.7 mg/L (0.0-4.9); Globulin 2.7 g/dL (1.3-4.6); Glomerular Filtration Rate 75.3 mL/min (90-130); Total Bilirubin 0.4 mg/dL (0.15-1.2); Total Protein 7.3 g/dL (6.6-8.7)
[2020-05-01 10:31] LABS: Erythrocyte Sedimentation Rate 13 mm/hr (0-15)
== END 2020-05-01 09:05 | disposition home or self-care (01) ==
PROVIDERS: PCP Family Medicine; Visit Provider Internal Medicine Rheumatology
DX: Z79.899 Other long term (current) drug therapy (principal)
CPT/HCPCS: 36415; 80076; 82565; 85025; 85651; 86140

== ENCOUNTER → 2020-06-25 10:13 | Outpatient (BNVA) | payer BC, SELFPAY | PROVIDERS: PCP Family Medicine; Visit Provider Psychiatry & Neurology Neurology | DX: M79.601 Pain in right arm (principal); Z98.890 Other specified postprocedural states | CPT/HCPCS: 95886; 95908 ==

== ENCOUNTER 2020-06-25 11:15 | Outpatient (CLI) | payer BC, SELFPAY ==
[2020-06-25 11:35] LABS: Basophils % 0.6 %; Eosinophils # 0.1 10^3/uL (0.0-0.8); Eosinophils % 2.6 %; Hematocrit 41.1 % (37.0-47.0); Hemoglobin 13.4 g/dL (11.5-15.3); Lymphocytes # 1.6 10^3/uL (0.8-4.8); Lymphocytes % 34.9 %; Mean Corpuscular HGB Conc 32.6 g/dL (30.0-36.0); Mean Corpuscular Hemoglobin 29.2 pg (28.0-34.0); Mean Corpuscular Volume 89.5 fL (81-99); Mean Platelet Volume 10.7 fL (7.4-10.4); Monocytes # 0.5 10^3/uL (0.2-0.9); Monocytes % 9.6 %; Neutrophils # 2.45 10^3/uL (1.8-7.7); Neutrophils % 52.1 %; Nucleated Red Blood Cells % 0 %; Platelet Count 247 10^3/cmm (130-400); Red Blood Count 4.59 10^6/uL (4.1-5.3); Red Cell Distribution Width 11.9 % (12.1-15.1); White Blood Count 4.7 10^3/uL (4.0-10.0)
[2020-06-25 11:54] LABS: Anion Gap 13.3 (5-19); Blood Urea Nitrogen 8 mg/dL (6-20); Carbon Dioxide 27 mmol/L (22-29); Chloride 103 mmol/L (98-107); Glomerular Filtration Rate 75.3 mL/min (90-130); Glucose 86 mg/dL (65-115); Osmolality Calculated 286 mOsm/kg (285-295); Potassium 4.3 mmol/L (3.5-5.1); Sodium 139 mmol/L (136-145)
== END 2020-06-25 11:16 | disposition home or self-care (01) ==
LOC: LAB 11:22
PROVIDERS: Internal Medicine; PCP Family Medicine; Visit Provider Internal Medicine Pulmonary Disease
DX: R07.9 Chest pain, unspecified (principal)
CPT/HCPCS: 36415; 80048; 85025; 85610; 87635

== ENCOUNTER → 2020-07-22 13:50 | Outpatient (BNVA) | payer BC, SELFPAY | PROVIDERS: PCP Family Medicine; Visit Provider Internal Medicine | DX: R07.9 Chest pain, unspecified (principal); Z20.822 Contact with and (suspected) exposure to COVID-19 | CPT/HCPCS: 87635 ==

== ENCOUNTER 2020-07-28 10:49 | Observation (INO) | payer BC, SELFPAY ==
[2020-07-22 13:29] LABS: Basophils % 0.8 %; Eosinophils # 0.2 10^3/uL (0.0-0.8); Eosinophils % 4.4 %; Hematocrit 41.4 % (37.0-47.0); Hemoglobin 13.2 g/dL (11.5-15.3); Lymphocytes # 1.6 10^3/uL (0.8-4.8); Lymphocytes % 30.6 %; Mean Corpuscular HGB Conc 31.9 g/dL (30.0-36.0); Mean Corpuscular Hemoglobin 29.3 pg (28.0-34.0); Mean Corpuscular Volume 91.8 fL (81-99); Mean Platelet Volume 10.6 fL (7.4-10.4); Monocytes # 0.6 10^3/uL (0.2-0.9); Monocytes % 10.8 %; Neutrophils # 2.75 10^3/uL (1.8-7.7); Neutrophils % 53.2 %; Nucleated Red Blood Cells % 0 %; Platelet Count 243 10^3/cmm (130-400); Red Blood Count 4.51 10^6/uL (4.1-5.3); Red Cell Distribution Width 12.1 % (12.1-15.1); White Blood Count 5.2 10^3/uL (4.0-10.0)
[2020-07-22 13:37] LABS: INR 0.88 (0.8-1.2)
[2020-07-22 13:48] LABS: Anion Gap 13.1 (5-19); Blood Urea Nitrogen 8 mg/dL (6-20); Calcium 8.7 mg/dL (8.5-10.5); Carbon Dioxide 27 mmol/L (22-29); Chloride 102 mmol/L (98-107); Glomerular Filtration Rate 104.6 mL/min (90-130); Glucose 83 mg/dL (65-115); Osmolality Calculated 283 mOsm/kg (285-295); Potassium 4.1 mmol/L (3.5-5.1); Sodium 138 mmol/L (136-145)
[2020-07-25 09:28] VITALS: BMI 39.1
[2020-07-28] VITALS (10 sets, daily range): BP systolic 111–128; BP diastolic 76–92; PULSE 68–94; RESP 14–20; TEMP 36.5; O2SAT 96; BMI 39.1
--- NOTE | 2020-07-28 09:00 | XACV_ITS ---
Ht: 160 cm Wt: 100 kg BSA: 2.16 m2 Gender: Female : 1965 Any Known Allergies: Other Exam Priority: Routine Procedure(s): Procedure Description: Diagnostic procedure Procedure Description: Left Heart Catheterization Procedure Description: Left ventriculography Procedure Description: Coronary Angiography Diagnostic Cath Status: Elective Diagnostic Findings * No disease noted in the Left Main, Left Anterior Descending, Right, or Circumflex coronary arteries. * Coronary angiography shows right dominance. Conclusions 1. No disease noted in the Left Main, Left Anterior Descending, Right, or Circumflex coronary arteries. 2. Normal left ventricular systolic function. Ejection fraction of 50%. Recommendations * Aggressive risk factor control. * Patient's chest pain can be related to microvascular dysfunction, order isosorbide mononitrate for the treatment. Diagnostic RX Recommendation: medical therapy and/or counseling Anticoagulation: Heparin Ventriculography Ejection Fraction: 50.0 % Pressures Phase:Rest AO : 124 / 52 ( 85 ) @ 9:45:00 AM LV : 3 / -1 / -2 @ 9:43:00 AM 119 / 20 / 22 @ 9:43:00 AM 121 / 29 / 40 @ 9:45:00 AM Clinical Evaluation EBL: 5mL-10mL Procedural Details Procedure Consent Obtained. Pre-Procedure Time Out. Identified patient by full name and date of as verbalized by the patient/guarantor. Does the consent match the physician's order: Yes. Accurate & Complete Informed Consent: Yes. Inpatient/Outpatient History & Physical on Chart: Yes. If H&P is completed, is and addenduem needed: No; If yes, is the addendum complete: N/A. Visualize and Verify Site with Patient/Guarantor: N/A. Relevant Radiology Images available: N/A. Pre-op teaching completed and patient verbalized understanding. The risks, benefits, and alternatives of sedation and/or procedure were discussed by physician. The patient agrees to continue. Procedure started. [facility] Clinical Fraility Score: 2: Well. Business Unit Manager Indications: Worsening Angina. Chest Pain Symptom Assessment: Typical Angina Symptoms. Cardiovascular Instability: No. Correct patient, site and procedure confirmed by cath team. PERRLA. Strong, equal hand network relay tester bilaterally. Lungs clear x 5 lobes. IV Site on Arrival: 20 gauge in the left anticubital. IV Fluids: 0.9% NaCl at KVO. 0 mL infused prior to laboratory equipment cleaner. Pre Procedural Pulses: bilateral dorsalis pedis was 3+. Pre Procedural Pulses: bilateral posterior tibial was 1+. Pre Procedural Pulses: right radial was 1+. Pre Procedural Pulses: left radial was 3+. Oxygen started at 2liters/min via nasal canula. bilateral groins was prepped with chloroprep then draped in the usual sterile fashion. right radial was prepped with chloroprep then draped in the usual sterile fashion. Baseline sample Acquired. HR: 69 BPM. Physician notified. Equipment: 6F - Radial. Cardiac Cath Pack. ACIST Manifold Kit Model BT 2000. Heparinized Saline (2 units/mL), 1000 mL bag. Physician arrived. Physician scrubbed in. Immediate Pre-Procedure Time Out. Correct Patient: Yes; Correct Procedure: Yes; Correct Site: Yes; Correct Patient Position: Yes; Correct Supplies: Yes; Dried Flammable Prep: Yes; Blood Products Available: N/A;. Lidocaine 1% infiltrated to the right radial. Arterial access obtained. A 5 yakut TIG catheter in over wire. Multiple views taken of left coronary artery. Catheter redirected to the RCA. Multiple views taken of right coronary artery. Catheter removed over the exchange wire. A 5 yakut Angled Pig catheter in over wire. EDP Sample taken: LV 3/-2,-3; HR: 79 BPM; SpO2: 96%. EDP Sample taken: LV 119/20,22; HR: 85 BPM; SpO2: 96%. LV gram performed in POLANCO @ 10 mL/second for a total of 30 mL. EDP Sample taken: LV 121/29,40; HR: 91 BPM; SpO2: 97%. Pullback taken: LV Off; AO Off; Mean: , Peak to Peak: , SEP: ; HR: 89 BPM; SpO2: 97%. Catheter removed over the exchange wire. Physician scrubbed out. Medication's Wasted: Heparin = 1000 units. A TR Band was successful obtaining hemostatsis at the Right Radial artery insertion site. TR band placed. Hemostasis obtained. Post Procedure: Pulses reassessed and unchanged. PERRLA. Strong, equal hand network relay tester bilaterally. No VTE prophylaxis required. Medication's Wasted: Lidocaine 1% = 18 mL. Medication's Wasted: Nitro = 49.8 mg. Total IV fluids: 300 mL. Contrast type used: Omnipaque 300 mgI/mL, 500 mL bottle. Post-op diagnosis: non obstructive CAD. Complications: none. Estimated blood loss: 5mL-10mL. Procedure completed. Patient transferred by wheelchair to 1st floor. Vital chart was stopped. Access Site Site: Right Radial artery Sheath Size: 5 Fr Hemostasis Method: TR Band Hemostasis Success: Successful Procedure Medications Start: 10:20 AM Stop: 10:20 AM Medication: Versed Amount: 2 mg Route: I.V. Start: 10:20 AM Stop: 10:20 AM Medication: Fentanyl Amount: 50 mcg Route: I.V. Start: 10:22 AM Stop: 10:22 AM Medication: Versed Amount: 1 mg Route: I.V. Start: 10:24 AM Stop: 10:24 AM Medication: Fentanyl Amount: 25 mcg Route: I.V. Start: 10:25 AM Stop: 10: AM Medication: Versed Amount: 1 mg Route: I.V. Start: 10: AM Stop: 10: AM Medication: Fentanyl Amount: 25 mcg Route: I.V. Start: 10: AM Stop: : AM Medication: Versed Amount: 1 mg Route: I.V. Start: 10: AM Stop: 10: AM Medication: Morphine Amount: 2 mg Route: I.V. Start: 10:33 AM Stop: 10:33 AM Medication: Versed Amount: 2 mg Route: I.V. Start: 10:33 AM Stop: 10:33 AM Medication: Nitrogylcerin Amount: 200 mcg Route: I.A. Start: 10:34 AM Stop: 10:34 AM Medication: Morphine Amount: 2 mg Route: I.V. Start: 10:36 AM Stop: 10:36 AM Medication: Heparin Amount: 5000 units Route: I.V. I, the attending physician, have reviewed and verified all procedure medications. Yes, all medications given per verbal order History/Risk Factors Hypertension: Yes Dyslipidemia: Yes Peripheral Arterial Disease (PAD): No Myocardial Infarction (VA): Yes Obesity: Yes Renal Disease: No Prior Interventions PCI: No CABG: No Valve Surgery: No Report Signatures Finalized by Moises Melton MD on 07/28/2020 08:18 PM
[2020-07-28] MEDS: diphenhydrAMINE 50 mg Capsule PO (09:35)
--- NOTE | 2020-07-28 10:20 | P.HP_ITS ---
Same Day Surgery H&P Indication for Procedure/HPI DATE OF PROCEDURE: July 28, 2020 CHIEF COMPLAINT/INDICATIONFOR SURGICAL PROCEDURE: Chest pain PREOP DIAGNOSIS: Chest pain PLANNED PROCEDRUE: Operation Date: 07/28/20 10:00 Proposed Procedures p Cardiac Catheterization 05794 R07.89(Left) - Moises Melton M.D Possible percutaneous coronary intervention 54-year-old woman with past medical history of hypertension, asthma, obstructive sleep apnea, fibromyalgia, inflammatory arthritis referred by pulmonology for complaints of shortness of breath and lower extremity edema. Echocardiogram shows normal LV systolic function. Patient has been having typical chest pain episodes and shortness of breath. Stress test had elevated TID ROS CONSTITUTIONAL: No fever chills weight loss or gain or night sweats. [] HEENT: Normocephalic, atraumatic.[] RESPIRATORY: No cough, sputum, hemoptysis or wheezing.[] CARDIOVASCULAR: No shortness of breath, chest pain, PND, orthopnea, lower extremity edema, presyncope or syncope. [] GI: no nausea vomiting diarrhea. 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 [] MUSCULOSKELETAL: No knee or joint pain or rashes. [] Medications/Allergies* Home Medications Medication Instructions Recorded Confirmed Type losartan 25 mg tablet 25 mg PO DAILY 04/19/19 07/25/20 History albuterol sulfate 90 mcg/actuation 2 inh INHALATION Q6H PRN 04/22/19 07/28/20 History breath activated powder inhaler,sensor alprazolam 0.5 mg tablet 0.5 mg PO DAILY PRN 07/25/19 07/28/20 History Allergies/Adverse Reactions Allergy/AdvReac Type Severity Reaction Status Date / Time hydroxychloroquine Allergy Intermediate Vision Verified 07/25/20 09:23 problems Sulfa (Sulfonamide Allergy rash Verified 07/25/20 09:23 Antibiotics) milnacipran [From Savella] AdvReac Intermediate felt Verified 07/25/20 09:23 dopey, not right couldnt work duloxetine [From Cymbalta] AdvReac Mild felt dopey Verified 07/25/20 09:23 Current Medications: Generic Name Dose Route Start Last Admin Trade Name Freq PRN Reason Stop Dose Admin Sodium Chloride 1,000 mls @ 50 mls/hr 07/28/20 09:30 07/28/20 09:36 Sodium Chloride 0.9% IV 07/29/20 05:29 Not Given .Q20H ONE Pertinent History/Comorbid Conditions* Medical History (Updated 06/25/20 @ 10:59 by Sae Kenny MD) COPD (chronic obstructive pulmonary disease) 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 Encounter for screening for other viral diseases Fibromyalgia Good's disease High risk medication use History of blood clots History of NV (myocardial infarction) Hypertension Immunization counseling Inflammatory arthritis Joint pain MRSA infection cut out infection on abdomen 2006 Surgical History (Updated 01/30/20 @ 10:16 by Jose Pereyra MD) H/O spinal fusion c3/4, c4/5, c5/6 H/O thyroidectomy x2 History of cholecystectomy History of elbow surgery bilateral x2 History of hand surgery bilateral x3 each History of hysterectomy with BSO Family History (Updated 07/25/19 @ 15:35 by Bhavna Frizt LPN) Rheumatoid arthritis CAD (coronary artery disease) Leukemia Chronic kidney disease (CKD) Cancer Hypertension Stroke Denies family history of Hyperlipidemia Systemic lupus erythematosus (SLE) in adult Lung disease Social History Smoking and tobacco status: never smoked Second hand smoke exposure: Yes Smoking risk assessment/counseling performed?: Yes Alcohol intake: current Alcohol intake frequency: few times a week Alcohol type: wine Desire information about alcohol rehabilitation?: No Lives independently: Yes Household members: spouse Housing: House Marital status: Current occupational status: employed Current occupation: [employer] Pets and animals: Yes History of recent travel: No Current gender identity: Female Special [place] needs: No Pertinent Exam Findings alert, oriented x 3, clear to auscultation bilaterally and regular rate & rhythm Conscious Sedation Assessment PATIENT ASSESSED PRIOR TO SEDATION, WITH NO CHANGE NOTED: Yes AIRWAY EVAL/ANESTHESIA PLAN: normal airway, see other exam findings, ASA III, Monitored Anesthesia, Local Anesthesia, Risks, benefits & alternatives of sedation and/or procedure discussed and Patient agrees to continue as planned Recommendations Surgery/Procedure today (Left heart cath with possible percutaneous coronary intervention) Coding Level of Care Code Acute Coverstitch Elastic Attacher for Adela Smith
--- NOTE | 2020-07-31 16:27 | PC.RESP ---
PULMONARY REHAB INFORMATION SENT TO PATIENT.
== END 2020-07-28 14:00 | disposition home or self-care (01) ==
LOC: CCL 10:50 → CSU 10:50
PROVIDERS: Admitting Provider Internal Medicine; PCP Family Medicine; Visit Provider Internal Medicine
DX: I25.10 Atherosclerotic heart disease of native coronary artery without angina pectoris (principal); R07.89 Other chest pain; I10 Essential (primary) hypertension; J45.909 Unspecified asthma, uncomplicated; G47.33 Obstructive sleep apnea (adult) (pediatric); M79.7 Fibromyalgia; I25.2 Old myocardial infarction; Z86.14 Personal history of Methicillin resistant Staphylococcus aureus infection; Z98.1 Arthrodesis status
CPT/HCPCS: 36415; 80048; 85025; 85610; 93452; C1769; C1887; C1894; G0378; J1644; J2250; J2270; J3010; J3490; J7030; Q0163; Q9967

== ENCOUNTER → 2020-08-04 11:07 | Outpatient (BNVA) | payer BC, SELFPAY | PROVIDERS: PCP Family Medicine; Visit Provider Nurse Practitioner Family | DX: I10 Essential (primary) hypertension (principal); R07.9 Chest pain, unspecified | CPT/HCPCS: 80048 ==

== ENCOUNTER → 2020-08-13 14:46 | Outpatient (BNVA) | payer BC, SELFPAY | PROVIDERS: PCP Family Medicine; Visit Provider Internal Medicine Rheumatology | DX: M06.041 Rheumatoid arthritis without rheumatoid factor, right hand (principal); M06.042 Rheumatoid arthritis without rheumatoid factor, left hand; G47.33 Obstructive sleep apnea (adult) (pediatric); M79.7 Fibromyalgia; Z79.899 Other long term (current) drug therapy | CPT/HCPCS: 99214 ==

== ENCOUNTER 2020-08-25 16:00 | Outpatient (CLI) | payer BC, SELFPAY ==
[2020-08-25 16:46] LABS: Alanine Aminotransferase 29 U/L (0-33); Albumin Level 4.2 g/dL (3.5-5.2); Alkaline Phosphatase 72 IU/L (35-105); Aspartate Amino Transferase 31 U/L (0-32); Globulin 2.5 g/dL (1.3-4.6); Total Bilirubin 0.3 mg/dL (0.15-1.2); Total Protein 6.7 g/dL (6.6-8.7)
== END 2020-08-25 16:01 | disposition home or self-care (01) ==
PROVIDERS: PCP Family Medicine; Visit Provider Internal Medicine Rheumatology
DX: M19.90 Unspecified osteoarthritis, unspecified site (principal); Z79.899 Other long term (current) drug therapy
CPT/HCPCS: 36415; 80076

== ENCOUNTER → 2020-09-15 12:41 | Outpatient (BNVA) | payer BC, SELFPAY | PROVIDERS: PCP Family Medicine; Visit Provider Nurse Practitioner | DX: R05 Cough (principal) | CPT/HCPCS: 71046 ==

== ENCOUNTER 2020-10-30 16:05 | Outpatient (CLI) | payer BC, SELFPAY ==
[2020-10-30 17:17] LABS: Free T4 Free Thyroxine 1.34 ng/dL (0.82-1.77); Thyroid Stimulating Hormone 2.02 uIU/mL (0.27-4.20)
== END 2020-10-30 16:06 | disposition home or self-care (01) ==
PROVIDERS: PCP Family Medicine; Visit Provider Internal Medicine
DX: E89.0 Postprocedural hypothyroidism (principal)
CPT/HCPCS: 84439; 84443

== ENCOUNTER 2020-11-07 14:54 | Outpatient (CLI) | payer BC, SELFPAY ==
--- NOTE | 2020-11-07 15:02 | MM_ITS ---
WS: [id number] BILATERAL SCREENING DIGITAL MAMMOGRAM WITH CAD HISTORY: SCREENING COMPARISON: 07/02/2015 Bilateral CC and MLO views submitted. Computer aided detection analyzed. Breast composition: There are scattered areas of fibroglandular density. No suspicious masses, microc alcifications or architectural distortion. Benign calcifications in the posterior LEFT breast. MM/[id number] IMPRESSION: BI-RADS: 2-Benign FOLLOW UP: 1 Year Follow-up
== END 2020-11-07 14:55 | disposition home or self-care (01) ==
LOC: RADSHAW 14:59
PROVIDERS: PCP Family Medicine; Visit Provider Nurse Practitioner Family
DX: Z12.31 Encounter for screening mammogram for malignant neoplasm of breast (principal)
CPT/HCPCS: 77067

== ENCOUNTER → 2020-12-16 15:03 | Outpatient (BNVA) | payer BC, SELFPAY | PROVIDERS: PCP Family Medicine; Visit Provider Internal Medicine Rheumatology | DX: M06.041 Rheumatoid arthritis without rheumatoid factor, right hand (principal); M06.042 Rheumatoid arthritis without rheumatoid factor, left hand; Z79.899 Other long term (current) drug therapy; M79.7 Fibromyalgia; G47.30 Sleep apnea, unspecified; Z71.85 Encounter for immunization safety counseling | CPT/HCPCS: 99214 ==

== ENCOUNTER 2020-12-29 13:31 | Outpatient (CLI) | payer BC, SELFPAY ==
[2020-12-29 14:01] LABS: Basophils % 0.7 %; Eosinophils # 0.2 10^3/uL (0.0-0.8); Eosinophils % 3.1 %; Hemoglobin 13.1 g/dL (11.5-15.3); Lymphocytes # 1.9 10^3/uL (0.8-4.8); Lymphocytes % 34.3 %; Mean Corpuscular HGB Conc 32.8 g/dL (30.0-36.0); Mean Corpuscular Hemoglobin 29.6 pg (28.0-34.0); Mean Corpuscular Volume 90.3 fl (81-99); Mean Platelet Volume 9.8 fL (7.4-10.4); Monocytes # 0.4 10^3/uL (0.2-0.9); Neutrophils # 2.94 10^3/uL (1.8-7.7); Neutrophils % 53.7 %; Nucleated Red Blood Cells % 0 %; Platelet Count 263 10^3/cmm (130-400); Red Blood Count 4.43 10^6/uL (4.1-5.3); Red Cell Distribution Width 12.1 % (12.1-15.1); White Blood Count 5.5 10^3/uL (4.0-10.0)
[2020-12-29 14:26] LABS: Alanine Aminotransferase 24 U/L (0-33); Albumin Level 4.4 g/dL (3.5-5.2); Alkaline Phosphatase 66 IU/L (35-105); Aspartate Amino Transferase 25 U/L (0-32); C Reactive Protein 0.9 mg/L (0.0-4.9); Globulin 2.8 g/dL (1.3-4.6); Glomerular Filtration Rate 87.5 mL/min (90-130); Total Bilirubin 0.3 mg/dL (0.15-1.2); Total Protein 7.2 g/dL (6.6-8.7)
== END 2020-12-29 13:32 | disposition home or self-care (01) ==
PROVIDERS: PCP Family Medicine; Visit Provider Internal Medicine Rheumatology
DX: M06.041 Rheumatoid arthritis without rheumatoid factor, right hand (principal); M06.042 Rheumatoid arthritis without rheumatoid factor, left hand; Z79.899 Other long term (current) drug therapy
CPT/HCPCS: 36415; 80076; 82565; 85025; 86140

== ENCOUNTER 2021-04-21 13:53 | Outpatient (CLI) | payer BC, SELFPAY ==
--- NOTE | 2021-04-21 14:04 | XR_ITS ---
WS: [id number] LEFT SHOULDER: 2 VIEW(S) TECHNIQUE: Internal and external rotation. HISTORY: M25.519 - Pain in unspecified shoulder COMPARISON: None available. No fracture or dislocation or soft tissue abnormality. Very slight narrowing at the AC joint. XR/XR shoulder LT min 2V* [id number] IMPRESSION: Minimal AC joint arthritis.
== END 2021-04-21 13:54 | disposition home or self-care (01) ==
PROVIDERS: PCP Family Medicine; Visit Provider Internal Medicine Rheumatology
DX: M25.519 Pain in unspecified shoulder (principal); W19.XXXA Unspecified fall, initial encounter
CPT/HCPCS: 73030

== ENCOUNTER 2021-05-11 10:56 | Outpatient (CLI) | payer BC, SELFPAY ==
[2021-05-11 11:40] LABS: Basophils % 0.7 %; Eosinophils # 0.1 10^3/uL (0.0-0.8); Eosinophils % 2.1 %; Hematocrit 40.4 % (37.0-47.0); Hemoglobin 13.2 g/dL (11.5-15.3); Lymphocytes # 1.9 10^3/uL (0.8-4.8); Lymphocytes % 31.8 %; Mean Corpuscular HGB Conc 32.7 g/dL (30.0-36.0); Mean Corpuscular Volume 88.8 fl (81-99); Mean Platelet Volume 10.5 fL (7.4-10.4); Monocytes # 0.5 10^3/uL (0.2-0.9); Monocytes % 7.9 %; Neutrophils # 3.47 10^3/uL (1.8-7.7); Neutrophils % 57.3 %; Nucleated Red Blood Cells % 0 %; Platelet Count 257 10^3/cmm (130-400); Red Blood Count 4.55 10^6/uL (4.1-5.3); Red Cell Distribution Width 12.5 % (12.1-15.1); White Blood Count 6.1 10^3/uL (4.0-10.0)
[2021-05-11 12:07] LABS: Alanine Aminotransferase 36 U/L (0-33); Albumin Level 4.7 g/dL (3.5-5.2); Alkaline Phosphatase 86 IU/L (35-105); Aspartate Amino Transferase 24 U/L (0-32); Free T4 Free Thyroxine 1.88 ng/dL (0.82-1.77); Globulin 2.4 g/dL (1.3-4.6); Glomerular Filtration Rate 87.5 mL/min (90-130); Thyroid Stimulating Hormone 0.41 uIU/mL (0.27-4.20); Total Bilirubin 0.3 mg/dL (0.15-1.2); Total Protein 7.1 g/dL (6.6-8.7)
== END 2021-05-11 10:57 | disposition home or self-care (01) ==
PROVIDERS: Internal Medicine Rheumatology; PCP Family Medicine; Visit Provider Internal Medicine
DX: E03.9 Hypothyroidism, unspecified (principal); M06.041 Rheumatoid arthritis without rheumatoid factor, right hand; M06.042 Rheumatoid arthritis without rheumatoid factor, left hand; Z79.899 Other long term (current) drug therapy
CPT/HCPCS: 80076; 82565; 84439; 84443; 85025; 86140

== ENCOUNTER 2021-06-30 15:41 | Outpatient (CLI) | payer BC, SELFPAY ==
[2021-06-30 18:00] LABS: Thyroid Stimulating Hormone 0.14 uIU/mL (0.27-4.20)
[2021-06-30 20:04] LABS: Free T4 Free Thyroxine 1.81 ng/dL (0.82-1.77)
== END 2021-06-30 15:42 | disposition home or self-care (01) ==
LOC: LAB 15:50
PROVIDERS: PCP Family Medicine; Visit Provider Internal Medicine
DX: E03.9 Hypothyroidism, unspecified (principal)
CPT/HCPCS: 84439; 84443

== ENCOUNTER 2021-07-30 16:05 | Outpatient (CLI) | payer BC, SELFPAY ==
[2021-07-30 17:20] LABS: Free T4 Free Thyroxine 1.89 ng/dL (0.82-1.77); Thyroid Stimulating Hormone 0.17 uIU/mL (0.27-4.20)
== END 2021-07-30 16:06 | disposition home or self-care (01) ==
PROVIDERS: PCP Family Medicine; Visit Provider Internal Medicine
DX: E89.0 Postprocedural hypothyroidism (principal)
CPT/HCPCS: 36415; 84439; 84443

== ENCOUNTER → 2021-08-24 13:50 | Outpatient (BNVA) | payer BC, SELFPAY | PROVIDERS: PCP Family Medicine; Visit Provider Otolaryngology | DX: M43.22 Fusion of spine, cervical region (principal); M06.041 Rheumatoid arthritis without rheumatoid factor, right hand; M06.042 Rheumatoid arthritis without rheumatoid factor, left hand; Z79.899 Other long term (current) drug therapy | CPT/HCPCS: 80076; 82565; 85025; 86140 ==

== ENCOUNTER 2021-09-22 08:30 | Outpatient (CLI) | payer BC, SELFPAY | END 2021-09-22 08:31 | disposition home or self-care (01) | LOC: LAB 08:33 | PROVIDERS: PCP Family Medicine; Visit Provider Internal Medicine | DX: E03.9 Hypothyroidism, unspecified (principal); E66.01 Morbid (severe) obesity due to excess calories; Z68.41 Body mass index [BMI] 40.0-44.9, adult | CPT/HCPCS: 36415; 84439 ==

== ENCOUNTER 2021-11-27 16:00 | Outpatient (CLI) | payer BC, SELFPAY ==
[2021-11-27 17:09] LABS: Free T4 Free Thyroxine 1.24 ng/dL (0.82-1.77); Thyroid Stimulating Hormone 7.41 uIU/mL (0.27-4.20)
== END 2021-11-27 16:01 | disposition home or self-care (01) ==
PROVIDERS: PCP Family Medicine; Visit Provider Internal Medicine
DX: E03.9 Hypothyroidism, unspecified (principal)
CPT/HCPCS: 84439; 84443

== ENCOUNTER → 2021-11-30 15:08 | Outpatient (BNVA) | payer BC, SELFPAY | PROVIDERS: PCP Family Medicine; Visit Provider Internal Medicine Rheumatology | DX: M06.041 Rheumatoid arthritis without rheumatoid factor, right hand (principal); M06.042 Rheumatoid arthritis without rheumatoid factor, left hand; Z71.89 Other specified counseling; Z79.899 Other long term (current) drug therapy | CPT/HCPCS: 36415; 80076; 82565; 85025; 86140 ==

== ENCOUNTER 2021-12-18 15:18 | Outpatient (CLI) | payer BC, SELFPAY ==
--- NOTE | 2021-12-18 15:24 | MM_ITS ---
WS: [id number] BILATERAL 3D TOMOSYNTHESIS DIGITAL SCREENING MAMMOGRAPHY WITH CAD CLINICAL INFORMATION: SCREENING HISTORY: Screening mammogram. No current complaints. COMPARISON: November 07, 2020 TECHNIQUE: Bilateral CC and MLO views. FINDINGS: Scattered fibroglandular densities bilaterally. No suspicious focal mass, asymmetry, calcifications, or architectural distortion. No evidence of malignancy. A few tiny punctate and lucent centered calci fications. MM/[place] [id number] IMPRESSION: BI-RADS: 2-Benign FOLLOW UP: 1 Year Follow-up Recommend return to annual screening mammography.
== END 2021-12-18 15:19 | disposition home or self-care (01) ==
LOC: RAD 15:19
PROVIDERS: PCP Family Medicine; Visit Provider Nurse Practitioner Family
DX: Z12.31 Encounter for screening mammogram for malignant neoplasm of breast (principal)
CPT/HCPCS: 77063; 77067

== ENCOUNTER 2022-01-27 06:00 | Outpatient (RCR) | payer BC, SELFPAY | END 2022-02-10 23:59 | disposition home or self-care (01) | LOC: SPT 06:00 | PROVIDERS: PCP Family Medicine; Visit Provider Neurological Surgery | DX: M50.20 Other cervical disc displacement, unspecified cervical region (principal); M54.12 Radiculopathy, cervical region; M48.02 Spinal stenosis, cervical region | CPT/HCPCS: 97110; 97140; 97161 ==

== ENCOUNTER 2022-02-11 06:00 | Outpatient (RCR) | payer BC, SELFPAY | END 2022-03-03 16:41 | disposition home or self-care (01) | LOC: SPT 06:00 | PROVIDERS: PCP Clinical Nurse Specialist Adult Health; Visit Provider Neurological Surgery | DX: M50.20 Other cervical disc displacement, unspecified cervical region (principal); M54.12 Radiculopathy, cervical region; M48.02 Spinal stenosis, cervical region | CPT/HCPCS: 97110; 97140; 97530 ==

== ENCOUNTER → 2022-02-24 14:26 | Outpatient (BNVA) | payer BC, SELFPAY | PROVIDERS: PCP Clinical Nurse Specialist Adult Health; Visit Provider Internal Medicine Rheumatology | DX: M19.90 Unspecified osteoarthritis, unspecified site (principal); Z79.899 Other long term (current) drug therapy; M06.041 Rheumatoid arthritis without rheumatoid factor, right hand; M06.042 Rheumatoid arthritis without rheumatoid factor, left hand; G62.9 Polyneuropathy, unspecified; Z71.89 Other specified counseling; W19.XXXA Unspecified fall, initial encounter | CPT/HCPCS: 36415; 72040; 73030; 73070; 73110; 80076; 82565; 85025; 86140 ==

== ENCOUNTER 2022-03-09 01:00 | Outpatient (CLI) | payer BC, SELFPAY | END 2022-03-09 23:00 | disposition home or self-care (01) | LOC: CDL 04-13 18:11 | PROVIDERS: PCP Clinical Nurse Specialist Adult Health; Visit Provider Nurse Practitioner Family | DX: Z53.9 Procedure and treatment not carried out, unspecified reason (principal) | CPT/HCPCS: J0696 ==

== ENCOUNTER → 2022-03-12 09:28 | Outpatient (BNVA) | payer BC, SELFPAY | PROVIDERS: PCP Clinical Nurse Specialist Adult Health; Visit Provider Internal Medicine | DX: E89.0 Postprocedural hypothyroidism (principal); E66.01 Morbid (severe) obesity due to excess calories; Z68.41 Body mass index [BMI] 40.0-44.9, adult | CPT/HCPCS: 36415; 83036; 84439; 84443 ==

== ENCOUNTER → 2022-05-19 16:08 | Outpatient (BNVA) | payer BC, SELFPAY | PROVIDERS: PCP Clinical Nurse Specialist Adult Health; Visit Provider Nurse Practitioner Family | DX: N23 Unspecified renal colic (principal); N20.0 Calculus of kidney; R39.9 Unspecified symptoms and signs involving the genitourinary system | CPT/HCPCS: 81000 ==

== ENCOUNTER 2022-06-07 16:16 | Outpatient (CLI) | payer BC, SELFPAY ==
[2022-06-07 20:54] LABS: Free T4 Free Thyroxine 1.45 ng/dL (0.82-1.77); Thyroid Stimulating Hormone 1.48 uIU/mL (0.27-4.20)
== END 2022-06-07 16:17 | disposition home or self-care (01) ==
PROVIDERS: PCP Clinical Nurse Specialist Adult Health; Visit Provider Internal Medicine
DX: E66.01 Morbid (severe) obesity due to excess calories (principal); E89.0 Postprocedural hypothyroidism; Z68.41 Body mass index [BMI] 40.0-44.9, adult
CPT/HCPCS: 36415; 84439; 84443

== ENCOUNTER 2022-06-09 07:30 | Outpatient (CLI) | payer BC, SELFPAY ==
[2022-06-08 14:12] LABS: Basophils % 0.9 %; Eosinophils # 0.2 10^3/uL (0.0-0.8); Eosinophils % 3.4 %; Hematocrit 37.9 % (37.0-47.0); Hemoglobin 12.7 g/dL (11.5-15.3); Lymphocytes # 1.9 10^3/uL (0.8-4.8); Lymphocytes % 41.5 %; Mean Corpuscular HGB Conc 33.5 g/dL (30.0-36.0); Mean Corpuscular Hemoglobin 30.3 pg (28.0-34.0); Mean Corpuscular Volume 90.5 fl (81-99); Mean Platelet Volume 10.4 fL (7.4-10.4); Monocytes # 0.4 10^3/uL (0.2-0.9); Monocytes % 8.5 %; Neutrophils # 2.13 10^3/uL (1.8-7.7); Neutrophils % 45.5 %; Nucleated Red Blood Cells % 0 %; Platelet Count 250 10^3/cmm (130-400); Red Blood Count 4.19 10^6/uL (4.1-5.3); Red Cell Distribution Width 11.9 % (12.1-15.1); White Blood Count 4.7 10^3/uL (4.0-10.0)
[2022-06-08 14:18] LABS: Erythrocyte Sedimentation Rate 10 mm/hr (0-15)
[2022-06-08 14:43] LABS: Estmated Average Glucose 91; Hemoglobin A1C 4.8 % (4.0-6.0)
[2022-06-08 14:50] LABS: Alanine Aminotransferase 25 U/L (0-33); Albumin Level 4.5 g/dL (3.5-5.2); Alkaline Phosphatase 61 U/L (35-105); Aspartate Amino Transferase 23 U/L (0-32); Globulin 2.6 g/dL (1.3-4.6); Glomerular Filtration Rate 104.2 mL/min (90-130); Total Bilirubin 0.3 mg/dL (0.15-1.2); Total Protein 7.1 g/dL (6.6-8.7); Vitamin B12 206 pg/mL (232-1245)
[2022-06-08 15:00] LABS: Folate Level 10.1 ng/mL (4.8-37.3)
[2022-06-10 09:34] LABS: Anti-Nuclear Antibody Screen NEGATIVE (NEGATIVE)
== END 2022-06-09 07:31 | disposition home or self-care (01) ==
LOC: RAD 09-07 08:23
PROVIDERS: PCP Clinical Nurse Specialist Adult Health; Visit Provider Internal Medicine Rheumatology
DX: M06.041 Rheumatoid arthritis without rheumatoid factor, right hand (principal); M06.042 Rheumatoid arthritis without rheumatoid factor, left hand; M19.90 Unspecified osteoarthritis, unspecified site; Z79.899 Other long term (current) drug therapy
CPT/HCPCS: 36415; 80076; 82565; 82607; 82746; 83036; 85025; 85651; 86038; 86140

== ENCOUNTER 2022-06-16 05:51 | Emergency (ER) | payer BC, SELFPAY ==
[2022-06-16] VITALS (12 sets, daily range): BP systolic 104–151; BP diastolic 75–95; PULSE 62–88; RESP 18–20; TEMP 36.7; O2SAT 93–98; BMI 35.7
--- NOTE | 2022-06-16 05:58 | ED_ITS ---
HPI - General Adult General: Chief complaint: Abdominal Pain Stated complaint: back pain, abd pain, pain shooting down right side Time Seen by Provider: 06/16/22 05:57 History of Present Illness: Ms. Weber is a 56-year-old lady with complex past medical history presenting to the emergency department for low back pain. She reports increased activity over the weekend including doing some more yard work. She was okay on Tuesday however starting yesterday began having back pain. Mostly mid to low back with radiation on the right side in the groin and down the right leg laterally. Endorses worse with movement. Some associated nausea with the pain however no vomiting or changes in bowel movements/urinating. Intensity is moderate to severe. Course has worsened. No other specific changes in health, exacerbating, or alleviating factors identified. 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 Encounter for screening for other viral diseases Fibromyalgia Good's disease High risk medication use High risk medication use History of blood clots History of NM (myocardial infarction) Hypertension Immunization counseling Inflammatory arthritis Injury of left shoulder Insomnia Joint pain MRSA infection cut out infection on abdomen 2005 Seronegative rheumatoid arthritis of both hands Surgical History H/O spinal fusion c3/4, c4/5, c5/6 H/O thyroidectomy x2 History of cholecystectomy History of elbow surgery bilateral x2 History of hand surgery bilateral x3 each History of hysterectomy with BSO History of lumbosacral spine surgery Cage C6 C7 Family History Other CAD (coronary artery disease) Cancer Chronic kidney disease (CKD) Hypertension Leukemia Rheumatoid arthritis Stroke Denies family history of Hyperlipidemia Systemic lupus erythematosus (SLE) in adult Lung disease Social History Smoking and tobacco status: never smoked Second hand smoke exposure: Yes Smoking risk assessment/counseling performed?: Yes Alcohol intake: current Alcohol intake frequency: few times a week Alcohol type: wine Desire information about alcohol rehabilitation?: No Lives independently: Yes Household members: spouse Housing: House Marital status: Current occupational status: employed Current occupation: [employer] Pets and animals: Yes Current gender identity: Female Special [place] needs: No Physical Exam Const: COMMON NORMALS: alert GENERAL APPEARANCE: cooperative and well developed HENMT: COMMON NORMALS: normocephalic and atraumatic HEAD & SCALP: n ormocephalic and atraumatic Eye: COMMON NORMALS: conjunctivae normal CONJUNCTIVA: Yes conjunctivae normal SCLERA: sclerae normal Neck/C-Spine: COMMON NORMALS: supple GENERAL: Yes trachea midline Resp: COMMON NORMALS: normal respiratory effort and clear to auscultation bilaterally EFFORT & INSPECTION: Yes able to speak in complete sentences AUSCULTATION: clear to auscultation bilaterally Cardio: COMMON NORMALS: regular rate and regular rhythm RATE: regular rate RHYTHM: regular rhythm GI: COMMON NORMALS: Soft to palpation PALPATION: Yes Soft to palpation and No Tenderness to palpation present (GI) Back/Pelvis: OTHER: Lower thoracic tenderness palpation, right paraspinal and SI tenderness to palpation. Extremity: GENERAL: Yes normal exam except as noted and No edema Neuro: COMMON NORMALS: moves all extremities SENSORIUM/ORIENTATION: Yes alert and No Orientation impaired Psych: COMMON NORMALS: mental status grossly normal and Normal thought process present THOUGHT PROCESS: Normal thought process present Course Vital Signs: Vital signs: Vital Signs Temperature 98.0 F 06/16/22 06:00 Pulse Rate 88 06/16/22 14:42 Respiratory Rate 18 06/16/22 06:55 Blood Pressure 122/75 06/16/22 14:42 Pulse Oximetry 93 06/16/22 14:42 Oxygen Delivery Me thod Room Air 06/16/22 14:15 [facility] - General Adult Medical Decision Making 56-year-old lady presenting to the emergency department for evaluation of right flank and back pain. Exam as above. Patient is nontoxic. Labs with no significant hematologic or metabolic abnormalities to explain patient's symptoms. No UTI. CT head demonstrates no clear etiology of patient's symptoms. Patient was treated with multimodal approach to analgesia with multiple doses and despite this has not had improvement. She has a history of abnormal EMG. Therefore further advanced imaging to evaluate for acute neurosurgical emergency is warranted. MRIs demonstrates no emergent condition. Findings of MRIs discussed with patient. On reassessment she is mildly improved. Most likely etiology of patient's symptoms is low back pain with radicular component. The results of ED evaluation were discussed with the patient including prescriptions and/or symptomatic cares (if applicable) including appropriate and responsible use, followup plan, and return precautions. The patient verbalized understanding and felt safe for discharge. Medical Records I reviewed the patient's medical records. Lab Data I reviewed the patient's lab results. 06/16/22 06:08 06/16/22 06:08 Radiology Impressions Abdomen/Pelvis CT 06/16/22 06:48 IMPRESSION: 1. Normal appendix. 2. No evidence for colitis or acute inflammatory changes in the RIGHT lower quadrant. 3. No renal stone or obstruction. 4. No free fluid or free air. 5. Prior cholecystectomy. Cervical Spine MRI 06/16/22 11:09 IMPRESSION: 1. Patient is status post anterior cervical fusion at C4-5 and C6-7. 2. Artifact encroaching upon the ventral thecal sac at C6-7. Underlying disc protrusion or hardware displacement cannot be excluded. CT evaluation may provide additional information concerning the hardware or osteophyte disease. 3. Mild RIGHT foraminal stenosis and bilateral foraminal stenosis at C5-6. 4. Mild central and bilateral foraminal stenosis at C6-7. Lumbar Spine MRI 06/16/22 11:09 IMPRESSION: 1. No significant central or foraminal stenosis. 2. Mild synovitis L4-5 facet joints, LEFT greater than RIGHT. 3. No disc protrusions. 4. No osteomyelitis or abscess. Laboratory Results WBC 5.0 10^3/uL (4.0-10.0) 06/16/22 06:08 RBC 4.49 10^6/uL (4.1-5.3) 06/16/22 06:08 Hgb 13.3 g/dL (11.5-15.3) 06/16/22 06:08 Hct 41.1 % (37.0-47.0) 06/16/22 06:08 MCV 91.5 fl (81-99) 06/16/22 06:08 MCH 29.6 pg (28.0-34.0) 06/16/22 06:08 MCHC 32.4 g/dL (30.0-36.0) 06/16/22 06:08 RDW 11.9 % (12.1-15.1) L 06/16/22 06:08 Plt Count 263 10^3/cmm (130-400) 06/16/22 06:08 MPV 10.2 fL (7.4-10.4) 06/16/22 06:08 Neut % (Auto) 55.1 % 06/16/22 06:08 Lymph % (Auto) 31.0 % 06/16/22 06:08 Stark % (Auto) 9.5 % 06/16/22 06:08 Eos % (Auto) 3.0 % 06/16/22 06:08 Baso % (Auto) 1.2 % 06/16/22 06:08 Neut # (Auto) 2.77 10^3/uL (1.8-7.7) 06/16/22 06:08 Lymph # (Auto) 1.6 10^3/uL (0.8-4.8) 06/16/22 06:08 Stark # (Auto) 0.5 10^3/uL (0.2-0.9) 06/16/22 06:08 Eos # (Auto) 0.2 10^3/uL (0.0-0.8) 06/16/22 06:08 Baso # (Auto) 0.1 10^3/uL (0.0-0.1) 06/16/22 06:08 Nucleated RBC % (auto) 0 % 06/16/22 06:08 Nucleated RBCs # 0.0 /100WBC 06/16/22 06:08 Sodium 140 mmol/L (136-145) 06/16/22 06:08 Potassium 4.5 mmol/L (3.5-5.1) 06/16/22 06:08 Chloride 105 mmol/L (98-107) 06/16/22 06:08 Carbon Dioxide 23 mmol/L (22-29) 06/16/22 06:08 Anion Gap 16.5 (5-19) 06/16/22 06:08 BUN 11 mg/dL (6-20) 06/16/22 06:08 Creatinine 0.8 mg/dL (0.5-0.9) 06/16/22 06:08 GFR Calculation 74.7 mL/min (90-130) L 06/16/22 06:08 Glucose 91 mg/dL (65-115) 06/16/22 06:08 Calculated Osmolality 289 mOsm/kg (285-295) 06/16/22 06:08 Calcium 9.0 mg/dL (8.5-10.5) 06/16/22 06:08 Total Bilirubin 0.3 mg/dL (0.15-1.2) 06/16/22 06:08 AST 22 U/L (0-32) 06/16/22 06:08 ALT 21 U/L (0-33) 06/16/22 06:08 Alkaline Phosphatase 61 U/L (35-105) 06/16/22 06:08 Total Protein 7.3 g/dL (6.6-8.7) 06/16/22 06:08 Albumin 4.2 g/dL (3.5-5.2) 06/16/22 06:08 Globulin 3.1 g/dL (1.3-4.6) 06/16/22 06:08 Lipase 59 U/L (13-60) 06/16/22 06:08 Urine Color Yellow (Yellow) 06/16/22 06:16 Urine Appearance Clear (CLEAR) 06/16/22 06:16 Urine pH 6 (5-7) 06/16/22 06:16 Ur Specific [place] 1.010 (1.005-1.030) 06/16/22 06:16 Urine Protein Neg (Negative) 06/16/22 06:16 Urine Glucose (UA) Norm (Normal) 06/16/22 06:16 Urine Ketones Negative (Negative) 06/16/22 06:16 Urine Blood Neg (Negative) 06/16/22 06:16 Urine Nitrate Negative (Negative) 06/16/22 06:16 Urine Bilirubin Neg (Negative) 06/16/22 06:16 Urine Urobilinogen Neg mg/dL (Negative) 06/16/22 06:16 Ur Leukocyte Esterase Negative (Negative) 06/16/22 06:16 Discharge Plan Discharge Patient Disposition: Home Clinical Impression: Lumbar radiculopathy, acute, Back pain Condition: Stable Prescriptions: New oxycodone 5 mg tablet 5 mg PO Q4H PRN (Reason: pain) Qty: 10 0RF Valium 2 mg tablet 2 mg PO TID PRN (Reason: back pain) Qty: 10 0RF No Action albuterol sulfate 2.5 mg /3 mL (0.083 %) solution for nebulization 2.5 mg INHALATION Q4H PRN (Reason: shortness of breath or wheezing) Qty: 75 0RF Rx Instructions: dispense 1 box levothyroxine 100 mcg tablet See Rx Instructions PO DAILY Qty: 112 3RF Rx Instructions: 1 tab (100mcg) po daily on tue,,tue,,tue, and tue and take 2 tabs (200mcg) po on tuesday hydroxychloroquine 200 mg tablet 200 mg PO BID Qty: 60 3RF Rx Instructions: (pt not started as of 06/16/22) prednisone 20 mg tablet See Rx Instructions PO .COMPLEX 5 Days Qty: 5 0RF Rx Instructions: take 1 tab daily for 3-7 days prn joint pain flare Victoza 2-Christopher 0.6 mg/0.1 mL (18 mg/3 mL) pen injector 1.2 mg SUBCUT DAILY 30 Days Qty: 6 0RF Rx Instructions: (not started as of 06/16/22) Victoza 2-Christopher 0.6 mg/0.1 mL (18 mg/3 mL) pen injector 1.8 mg SUBCUT DAILY 30 Days Qty: 9 0RF Rx Instructions: (not started as of 06/16/22) isosorbide mononitrate 30 mg tablet extended release 24 hr 15 mg PO DAILY Qty: 45 3RF alprazolam 0.5 mg tablet 0.5 mg PO BEDTIME Qty: 30 2RF amlodipine 2.5 mg tablet 2.5 mg PO QAM Aspir-81 81 mg Tablet,Delayed Release (Dr/Ec) 81 mg PO QAM ProAir HFA 90 mcg/actuation Hfa Aerosol Inhaler 2 puff INHALATION Q6H PRN (Reason: Shortness Of Breath) Ozempic 0.25 mg or 0.5 mg(2 mg/1.5 mL) pen injector 0.5 mg SUBCUT Q7D Rx Instructions: on fridays atorvastatin 40 mg tablet 40 mg PO QPM leflunomide 20 mg tablet 20 mg PO QAM Pepcid 20 mg tablet 20 mg PO DAILY PRN (Reason: Acid Reflux) losartan 25 mg tablet 25 mg PO QAM folic acid 1 mg tablet 1 mg PO QAM Singulair 10 mg tablet 10 mg PO QAM cyanocobalamin (vitamin B-12) 2,000 mcg tablet 2,000 mcg PO QAM Discharge Orders: Discharge ED (Routine); Ordered 06/16/22 Ordered By: Fernando Larsen Referrals: Mamadou Giles MORTGAGE SPECIALIST [Primary Care Provider] - Discharge Diet: Usual diet Discharge Activity: Increase activity as tolerated Patient Instructions: Diazepam (By mouth), Acute Low Back Pain (ED), Lumbar Radiculopathy (ED), Opioid Safety Activity Restrictions/Additional Instructions: Thank you for visiting the emergency department. You were seen and evaluated for back pain. The most likely cause of your symptoms is related to irritation of nerves called lumbar radiculopathy. The treatment for this is supportive and this should improve with time. You may use [id number] medications such as acetaminophen and ibuprofen for pain however please do not exceed the daily recommended dosage as listed on the packaging and please keep in mind that many namebrand medications contain the same active ingredients. Please avoid these medications if previously instructed to do so by another physician due to other underlying medical condition. I will also prescribe oxycodone and Valium. Use this cautiously as they can have a negative synergistic effect as discussed. Do not take them at the same time. You may also use heat and ice as well as gentle stretches. Please follow-up with your primary care provider. Return to the emergency department for loss of control of bowel or bladder, numbness in your groin or perennial region, muscle weakness or inability to walk, or anything that you are concerned about and feel needs emergency department evaluation. Stand Alone Forms: Work/School Release Coding Level of Care Code ED Contract Officer for Adela Smith
[2022-06-16 06:17] LABS: Basophils # 0.1 10^3/uL (0.0-0.1); Basophils % 1.2 %; Eosinophils # 0.2 10^3/uL (0.0-0.8); Hematocrit 41.1 % (37.0-47.0); Hemoglobin 13.3 g/dL (11.5-15.3); Lymphocytes # 1.6 10^3/uL (0.8-4.8); Mean Corpuscular HGB Conc 32.4 g/dL (30.0-36.0); Mean Corpuscular Hemoglobin 29.6 pg (28.0-34.0); Mean Corpuscular Volume 91.5 fl (81-99); Mean Platelet Volume 10.2 fL (7.4-10.4); Monocytes # 0.5 10^3/uL (0.2-0.9); Monocytes % 9.5 %; Neutrophils # 2.77 10^3/uL (1.8-7.7); Neutrophils % 55.1 %; Nucleated Red Blood Cells % 0 %; Platelet Count 263 10^3/cmm (130-400); Red Blood Count 4.49 10^6/uL (4.1-5.3); Red Cell Distribution Width 11.9 % (12.1-15.1)
[2022-06-16 06:22] LABS: Add Urine Microscopic? NO; Charge for UA Resulting for Rev
[2022-06-16] MEDS: diazePAM 2 mg Tablet PO ×2 (06:22→12:02)
[2022-06-16] MEDS: acetaminophen 500 mg Tablet 1000 MG PO (06:23)
[2022-06-16] MEDS: ketorolac 30 mg/mL INJ 15 MG IVP (06:24)
[2022-06-16 06:30] LABS: Alanine Aminotransferase 21 U/L (0-33); Albumin Level 4.2 g/dL (3.5-5.2); Alkaline Phosphatase 61 U/L (35-105); Anion Gap 16.5 (5-19); Aspartate Amino Transferase 22 U/L (0-32); Blood Urea Nitrogen 11 mg/dL (6-20); Carbon Dioxide 23 mmol/L (22-29); Chloride 105 mmol/L (98-107); Globulin 3.1 g/dL (1.3-4.6); Glomerular Filtration Rate 74.7 mL/min (90-130); Glucose 91 mg/dL (65-115); Lipase 59 U/L (13-60); Osmolality Calculated 289 mOsm/kg (285-295); Potassium 4.5 mmol/L (3.5-5.1); Sodium 140 mmol/L (136-145); Total Bilirubin 0.3 mg/dL (0.15-1.2); Total Protein 7.3 g/dL (6.6-8.7)
[2022-06-16 06:37] LABS: Bilirubin Urine Neg (Negative); Blood Urine Neg (Negative); Glucose Urine UA Norm (Normal); Ketones Urine Negative (Negative); Leukocyte Esterase Urine Negative (Negative); Nitrate Urine Negative (Negative); Protein Urine Neg (Negative); Urine Appearance Clear (CLEAR); Urine Color Yellow (Yellow); Urobilinogen Urine Neg (Negative); pH Urine 6 (5-7)
--- NOTE | 2022-06-16 06:48 | CT_ITS ---
WS: [id number] CT ABDOMEN AND PELVIS WITH CONTRAST HISTORY: R flank and back pain, radiation down leg TECHNIQUE: Imaging performed of the abdomen and pelvis with IV contrast. Single phase imaging of the abdomen. Coronal and sagittal reformats are submitted. All CT scans at [facility] use at [address] one of these dose optimization techniques: automated exposure control; mA and/or kV adjustment per patient size (includes targeted exams where dose is matched to clinical indication); or iterative re construction. IV CONTRAST: Omnipaque 350; 100 mL IV. Oral contrast: No DLP: 878.86 mGy.cm COMPARISON: 05/13/2016 Lower thorax: Lung bases are clear. Heart is normal size. Small hiatal hernia. Liver/biliary system: Normal size with no intrahepatic dilatation. Gallbladder: Status post cholecystectomy. Pancreas: Normal size pancreas and pancreatic duct. No adjacent inflammation. Spleen: Normal size spleen. No mass or infarct. Adrenal glands: Normal. Right kidney: Normal size RIGHT kidney. 15 mm cyst mid kidney. No obstruction or hydronephrosis. Left kidney: Normal. Aorta: Mild atherosclerosis with no aneurysm. Lymphadenopathy: None. Free fluid: None. GI tract: Normal stomach and small bowel. No obstruction. Mild diffuse constipation. Normal appendix. No evidence for colitis. Abdominal wall: Unremarkable abdominal wall. No hernia. Pelvis: No free fluid or adenopathy within the pelvis. Prior hysterectomy. Bones: Unremarkable. CT/CT abdomen pelvis w con* [id number] IMPRESSION: 1. Normal appendix. 2. No evidence for colitis or acute inflammatory changes in the RIGHT lower qu adrant. 3. No renal stone or obstruction. 4. No free fluid or free air. 5. Prior cholecystectomy.
[2022-06-16] MEDS: morphine 4 mg/mL SDV 1 mL IVP (06:55)
[2022-06-16] MEDS: iohexol 350 mg/mL 500 mL Btl (per mL) IV (07:31)
[2022-06-16] MEDS: HYDROmorphone 1 mg/mL INJ 1 mL 0.5 MG IVP ×4 (08:09→14:12)
[2022-06-16] MEDS: dicyclomine 10 mg Capsule PO (09:04)
--- NOTE | 2022-06-16 09:36 | PC.PHAR ---
pt states she takes care of her own medications-pt states she hasnt started taking victoza daily written on 06/14/22 or hydroxychloroquine 200mg bid written 06/08/22-pt states she is no longer taking ranexa 500mg bid states she hasnt taken for a month states she doesnt like the way the medication made her feel-pt states her imdur er 30mg take 1/2 tab (15mg) daily was changed to ranexa states she wants to go back to imdur-
[2022-06-16] MEDS: dexamethasone 10 mg/mL INJ IVP (09:38)
[2022-06-16] MEDS: oxyCODONE 5 mg IR Tab/Cap PO (10:08)
[2022-06-16] MEDS: gabapentin 100 mg Capsule PO (10:08)
--- NOTE | 2022-06-16 11:09 | MR_ITS ---
WS: [id number] MRI CERVICAL SPINE NONCONTRAST HISTORY: bilateral arm pain, intractable back pain COMPARISON: 12/16/2015 Technique: Multiplanar, multisequence noncontrast imaging of the cervical spine. Prior anterior cervical fusion at C4-5 and C6-7. Interbody spacer at C6-7. Signal within the cervical cord is normal. Visualized posterior fossa is unremarkable. Craniocervical junction, C1 and C2 relationship, odontoid process and soft tissues are normal. C2-C3: Less than 2 mm anterolisthesis of C2. C3-C4: No significant stenosis. C4-C5: Mild osteophytic ridging. Very mild narrowing of the RIGHT foramen with no high-grade stenosis . C5-C6: Mild osteophytic ridging. No central stenosis. Mild bilateral foraminal narrowing. C6-C7: Mild blooming artifact encroaching upon the ventral cervical cord. It is difficult to determin e whether there is a true osteophyte or disc protrusion. There may be a small disc protrusion or disp lacement of the hardware. There is mild central and bilateral foraminal stenosis. C7-T1: Negative. Paraspinal soft tissue are normal. MR/MR cervical spin wo con* [id number] IMPRESSION: 1. Patient is status post anterior cervical fusion at C4-5 and C6-7. 2. Artifact encroaching upon the ventral thecal sac at C6-7. Underlying disc p rotrusion or hardware displacement cannot be excluded. CT evaluation may provid e additional information concerning the hardware or osteophyte disease. 3. Mild RIGHT foraminal stenosis and bilateral foraminal stenosis at C5-6. 4. Mild central and bilateral foraminal stenosis at C6-7.
--- NOTE | 2022-06-16 11:09 | MR_ITS ---
WS: [id number] MRI LUMBAR SPINE WITH AND WITHOUT CONTRAST. HISTORY: severe intractable R back pain, radiation down R leg COMPARISON: 07/17/2014 TECHNIQUE: Sagittal and axial multisequence imaging is submitted. Postcontrast imaging with MultiHanc e 20 mL IV. Normal posterior lumbar alignment. No marrow edema or fractures. Disc spaces are well preserved. Normal lumbar alignment with no compression fractures or marrow edema. Disc spaces and vertebral body heights are well-preserved. Conus terminates normally at L1-2 disc level. L1-L2: Mild facet arthritis. L2-L3: Normal. L3-L4: Mild facet arthritis. Mild disc bulging. No stenosis. L4-L5: Mild bilateral facet joint arthritis. Mild foraminal narrowing. L5-S1: Normal. No discitis or osteomyelitis. There is very mild enhancement surrounding the L4-5 facet joints, LEFT greater than RIGHT. MR/MR lumbar spine wo/w con [id number] IMPRESSION: 1. No significant central or foraminal stenosis. 2. Mild synovitis L4-5 facet joints, LEFT greater than RIGHT. 3. No disc protrusions. 4. No osteomyelitis or abscess.
[2022-06-16] MEDS: gadobenate dimeglumine 20 mL vial IV (13:06)
== END 2022-06-16 14:43 | disposition home or self-care (01) ==
PROVIDERS: Emergency Provider Emergency Medicine; PCP Clinical Nurse Specialist Adult Health
DX: M54.16 Radiculopathy, lumbar region (principal); Z79.82 Long term (current) use of aspirin; Z77.22 Contact with and (suspected) exposure to environmental tobacco smoke (acute) (chronic); J44.9 Chronic obstructive pulmonary disease, unspecified; I25.2 Old myocardial infarction; I10 Essential (primary) hypertension
CPT/HCPCS: 72141; 72158; 74177; 80053; 81003; 83690; 85025; 96374; 96375; 96376; 99285; A9577; J1100; J1170; J1885; J2270; Q9967

== ENCOUNTER 2022-07-18 07:07 | Emergency (ER) | payer BC, SELFPAY ==
--- NOTE | 2022-07-18 07:26 | W.ED.WOUNDLC ---
HPI - Wound/Laceration General: Chief Complaint: Extremity Injury, Upper Stated Complaint: left hand finger lac Time Seen by Provider: 07/18/22 07:10 Source: patient Mode of arrival: ambulatory Limitations: no limitations History of Present Illness: Patient is a 57-year-old female presents to ED today for treatment of a left middle finger laceration that she sustained just prior to arrival after she cut it using a knife while she was cutting fruit for breakfast. Tetanus is up-to-date. 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 Encounter for screening for other viral diseases Fibromyalgia Good's disease High risk medication use High risk medication use History of blood clots History of VT (myocardial infarction) Hypertension Immunization counseling Inflammatory arthritis Injury of left shoulder Insomnia Joint pain MRSA infection cut out infection on abdomen 2005 Seronegative rheumatoid arthritis of both hands Surgical History H/O spinal fusion c3/4, c4/5, c5/6 H/O thyroidectomy x2 History of cholecystectomy History of elbow surgery bilateral x2 History of hand surgery bilateral x3 each History of hysterectomy with BSO History of lumbosacral spine surgery Cage C6 C7 Family History Other CAD (coronary artery disease) Cancer Chronic kidney disease (CKD) Hypertension Leukemia Rheumatoid arthritis Stroke Denies family history of Hyperlipidemia Systemic lupus erythematosus (SLE) in adult Lung disease Social History Smoking and tobacco status: never smoked Second hand smoke exposure: Yes Smoking risk assessment/counseling performed?: Yes Alcohol intake: current Alcohol intake frequency: few times a week Alcohol type: wine Desire information about alcohol rehabilitation?: No Substance/Drug Use: never Lives independently: Yes Household members: spouse Housing: House Marital status: Current occupational status: employed Current occupation: [employer] Pets and animals: Yes Do you think of yourself as: Straight/Heterosexual Current gender identity: Female Special [place] needs: No Physical Exam Const: COMMON NORMALS: patient oriented x3, no limitations, healthy appearing, alert and well nourished GENERAL APPEARANCE: cooperative and anxious Extremity: COMMON NORMALS: full ROM and capillary refill normal GENERAL: Yes normal exam except as noted LEFT UPPER EXTREMITY: Yes hand & digits Left hand and digits: Yes inspection (flap laceration to distal dorsal L middle finger; no nail involvement), Yes ROM (normal), Yes neurovascular exam (normal) and Yes tendon exam (no tendon/bony involvement) Neuro: COMMON NORMALS: patient oriented x3, moves all extremities, no focal motor deficits and no sensory deficits noted SENSORIUM/ORIENTATION: Yes alert Procedures Laceration Laceration 1: Site: hand (L middle finger) Side (If applicable): left Size (cm): 1.5 Description: flap Depth: simple, single layer Local Anesthetic: lidocaine 1% (digital block performed) Pre-repair: wound explored and irrigated extensively Skin layer closed with: nylon Size (cm): 5-0 Number of sutures: 4 Technique: simple, interrupted Nerve Block Nerve Block 1: Local Anesthetic: lidocaine 1% Amount of anesthesia used (mL): 2.0 Side: left Nerve Blocks: digital Procedure Successful: Yes Patient Tolerated Procedure: well Complications: none Course Vital Signs: Vital signs: Vital Signs Pulse Rate 79 07/18/22 07:28 Blood Pressure 144/91 07/18/22 07:28 Pulse Oximetry 96 07/18/22 07:28 Oxygen Delivery Me thod Room Air 07/18/22 07:28 MDM - Wound/Laceration Medical Decision Making Wound copiously irrigated and repaired as documented. No XR needed as wound was visualized to only involve subq. Tetanus was UTD. Infection/wound care/precautions discussed. Discharge Plan Discharge Patient Disposition: Home Clinical Impression: Laceration of left middle finger Qualifiers: Encounter type: initial encounter Damage to nail status: without damage Foreign body presence: without foreign body Qualified Code(s): S61.213A - Laceration without foreign body of left middle finger without damage to nail, initial encounter Condition: Stable Prescriptions: No Action albuterol sulfate 2.5 mg /3 mL (0.083 %) solution for nebulization 2.5 mg INHALATION Q4H PRN (Reason: shortness of breath or wheezing) Qty: 75 0RF Rx Instructions: dispense 1 box levothyroxine 100 mcg tablet See Rx Instructions PO DAILY Qty: 112 3RF Rx Instructions: 1 tab (100mcg) po daily on tue,,tue,,tue, and tue and take 2 tabs (200mcg) po on tuesday hydroxychloroquine 200 mg tablet 200 mg PO BID Qty: 60 3RF Rx Instructions: (pt not started as of 06/16/22) prednisone 20 mg tablet See Rx Instructions PO .COMPLEX 5 Days Qty: 5 0RF Rx Instructions: take 1 tab daily for 3-7 days prn joint pain flare Victoza 2-Christopher 0.6 mg/0.1 mL (18 mg/3 mL) pen injector 1.2 mg SUBCUT DAILY 30 Days Qty: 6 0RF Rx Instructions: (not started as of 06/16/22) Victoza 2-Christopher 0.6 mg/0.1 mL (18 mg/3 mL) pen injector 1.8 mg SUBCUT DAILY 30 Days Qty: 9 0RF Rx Instructions: (not started as of 06/16/22) isosorbide mononitrate 30 mg tablet extended release 24 hr 15 mg PO DAILY Qty: 45 3RF alprazolam 0.5 mg tablet 0.5 mg PO BEDTIME Qty: 30 2RF amlodipine 2.5 mg tablet 2.5 mg PO QAM Aspir-81 81 mg Tablet,Delayed Release (Dr/Ec) 81 mg PO QAM ProAir HFA 90 mcg/actuation Hfa Aerosol Inhaler 2 puff INHALATION Q6H PRN (Reason: Shortness Of Breath) Ozempic 0.25 mg or 0.5 mg(2 mg/1.5 mL) pen injector 0.5 mg SUBCUT Q7D Rx Instructions: on fridays atorvastatin 40 mg tablet 40 mg PO QPM leflunomide 20 mg tablet 20 mg PO QAM Pepcid 20 mg tablet 20 mg PO DAILY PRN (Reason: Acid Reflux) losartan 25 mg tablet 25 mg PO QAM folic acid 1 mg tablet 1 mg PO QAM Singulair 10 mg tablet 10 mg PO QAM cyanocobalamin (vitamin B-12) 2,000 mcg tablet 2,000 mcg PO QAM oxycodone 5 mg tablet 5 mg PO Q4H PRN (Reason: pain) Qty: 10 0RF Valium 2 mg tablet 2 mg PO TID PRN (Reason: back pain) Qty: 10 0RF Discharge Orders: Discharge ED (Routine); Ordered 07/18/22 Ordered By: Roseline Sidhu Referrals: Mamadou Giles VASCULAR ULTRASOUND TECHNICIAN [Primary Care Provider] - Patient Instructions: Care For Your Stitches (DC), Finger Laceration (ED) Activity Restrictions/Additional Instructions: Keep wound/laceration clean with warm soap and water twice daily. Monitor for signs of infection such as redness, swelling, increased pain, or drainage. Please seek medical re-evaluation if these occur. If you received sutures today these will need to be removed (unless you were told by the provider that they are absorbable). The provider should have discussed with you the length of time until removal-7 DAYS. You may return to the emergency department for this service. Coding Level of Care Code ED Silver Lap Machine Tender for Adela Smith
[2022-07-18 07:28] VITALS: BP 144/91; PULSE 79; O2SAT 96; BMI 36.6
[2022-07-18] MEDS: ALPRAZolam 0.5 mg Tablet PO (07:55)
[2022-07-18] MEDS: lidocaine 1% INJ 10 mL (per mL) IM (08:32)
== END 2022-07-18 08:35 | disposition home or self-care (01) ==
PROVIDERS: Emergency Provider Physician Assistant; PCP Clinical Nurse Specialist Adult Health
DX: S61.213A Laceration without foreign body of left middle finger without damage to nail, initial encounter (principal); Z79.82 Long term (current) use of aspirin; J44.9 Chronic obstructive pulmonary disease, unspecified; I25.2 Old myocardial infarction; I10 Essential (primary) hypertension; W26.0XXA Contact with knife, initial encounter
CPT/HCPCS: 12001; 99282

== ENCOUNTER 2022-08-24 15:43 | Outpatient (CLI) | payer BC, SELFPAY ==
[2022-08-24 21:08] LABS: Free T4 Free Thyroxine 1.38 ng/dL (0.82-1.77); Thyroid Stimulating Hormone 2.36 uIU/mL (0.27-4.20)
[2022-08-27 00:40] LABS: T3 Total 143 ng/dL (76-181)
== END 2022-08-24 15:44 | disposition home or self-care (01) ==
PROVIDERS: PCP Clinical Nurse Specialist Adult Health; Visit Provider Internal Medicine
DX: E03.9 Hypothyroidism, unspecified (principal); E66.01 Morbid (severe) obesity due to excess calories; Z68.41 Body mass index [BMI] 40.0-44.9, adult
CPT/HCPCS: 36415; 84439; 84443; 84480

== ENCOUNTER → 2022-08-31 15:23 | Outpatient (BNVA) | payer BC, SELFPAY | PROVIDERS: PCP Clinical Nurse Specialist Adult Health; Visit Provider Internal Medicine Rheumatology | DX: Z79.899 Other long term (current) drug therapy (principal); M06.041 Rheumatoid arthritis without rheumatoid factor, right hand; M06.042 Rheumatoid arthritis without rheumatoid factor, left hand; Z71.89 Other specified counseling | CPT/HCPCS: 80076; 82565; 82607; 85025; 86140 ==

== ENCOUNTER 2022-09-10 12:50 | Outpatient (CLI) | payer BC, SELFPAY ==
--- NOTE | 2022-09-10 13:15 | USCV_ITS ---
July, Age: 57 Gender: F : 1965 Exam Date: 09/10/2022 13:46 Ordering Phys: Moises Melton M.D ([email or web address]) Technologist: Exam Location: [facility] [place] Indication: BP: 139 / 90 HR: 71 Rhythm: Sinus Technical Quality: Adequate MEASUREMENTS (Male / Female) Normal Values 2D ECHO LV Diastolic Diameter PLAX 4.0 cm 4.2 - 5.9 / 3.9 - 5.3 cm LV Systolic Diameter PLAX 2.7 cm IVS Diastolic Thickness 0.6 cm 0.6 - 1.0 / 0.6 - 0.9 cm IVS Systolic Thickness 1.4 cm LVPW Diastolic Thickness 1.3 cm 0.6 - 1.0 / 0.6 - 0.9 cm LVPW Systolic Thickness 1.9 cm LVOT Diameter 2.0 cm LV Ejection Fraction 2D Teich 62.1 % LV Ejection Fraction MOD 2C 68.3 % LV Ejection Fraction 2C AL 68.0 % LA Diameter 3.8 cm Aorta at Sinotubular Diameter 2.2 cm IVC Diameter 1.6 cm M-MODE Aortic Annulus Diameter 2.2 cm LA Ao Ratio MM 1.8 MV E Point Septal Separation 0.9 cm DOPPLER AV Peak Velocity 101.0 cm/s LVOT Peak Velocity 77.0 cm/s AV Area Cont Eq vti 2.2 cm squared AV Area Cont Eq pk 2.4 cm squared MV Peak Velocity 93.0 cm/s MV Area PHT 4.9 cm squared Mitral E to A Ratio 0.8 MV E' Velocity 30.5 cm/s Mitral E to MV E' Ratio 5.0 Mitral E to LV E' Lateral Ratio 5.4 Mitral E to LV E' Septal Ratio 4.8 TR Peak Velocity 102.7 cm/s TR Peak Gradient 4.2 mmHg TV Peak E Velocity 71.0 cm/s Right Atrial Pressure 3.0 mmHg Pulmonary Artery Systolic Pressu 7.2 mmHg PV Peak Velocity 94.0 cm/s FINDINGS Left Ventricle Left ventricle is normal in size. LV systolic function is normal with EF 60-65%. No regional wall motion abnormalities are seen. Grade 1 diastolic dysfunction Right Ventricle Normal in size and function Right Atrium Normal in size Left Atrium Normal in size Mitral Valve Structurally normal mitral valve. Trace mitral regurgitation. Aortic Valve Structurally normal aortic valve. No significant stenosis or regurgitation. Tricuspid Valve Mild tricuspid regurgitation. Insufficient TR jet to evaluate RVSP. Pulmonic Valve Not well visualized Pericardium Normal Aorta Normal in size IVC Appears to be normal CONCLUSIONS LV systolic function is normal with EF of 60-65%. Treatment diastolic dysfunction Trace mitral regurgitation Mild tricuspid regurgitation Compared to prior echocardiogram from 2019,no significant changes are noted Moises Melton MD (Electronically Signed) Final Date: 14 September 2022 13:55 S
== END 2022-09-10 12:51 | disposition home or self-care (01) ==
PROVIDERS: PCP Clinical Nurse Specialist Adult Health; Visit Provider Internal Medicine
DX: I34.0 Nonrheumatic mitral (valve) insufficiency (principal)
CPT/HCPCS: 93306

== ENCOUNTER 2022-09-11 11:20 | Emergency (ER) | payer BC, SELFPAY ==
[2022-09-11 11:37] VITALS: BP 145/104; PULSE 82; RESP 16; TEMP 36.6; O2SAT 98; BMI 36.6
[2022-09-11 12:01] VITALS: BP 126/92; PULSE 77; RESP 16; O2SAT 97
--- NOTE | 2022-09-11 12:08 | XRR_ITS ---
PROCEDURE INFORMATION: Exam: XR Chest Exam date and time: 09/11/2022 12:39 PM Age: 57 years old Clinical indication: Pain; Chest pressure; Additional info: Chest pain TECHNIQUE: Imaging protocol: Radiologic exam of the chest. Views: 1 view. COMPARISON: CR XR chest 2V* [id number] 09/15/2020 12:45 PM FINDINGS: Lungs: Unremarkable. No consolidation. Pleural spaces: Unremarkable. No pleural effusion. No pneumothorax. Heart/Mediastinum: Unremarkable. No cardiomegaly. Bones/joints: ACDF hardware noted in the lower cervical spine. Visualized osseous structures are intact. XR/XR chest 1V portable [id number] IMPRESSION: No acute findings.
--- NOTE | 2022-09-11 12:24 | W.ED.GENADLT ---
HPI - General Adult General: Chief complaint: General Medical Stated complaint: High B/P Time Seen by Provider: 09/11/22 11:35 History of Present Illness: Patient reports to the ER with complaints of high blood pressure. Patient states about goes all the way up to the 140s over 90s and then it will drop to the 80s over 60s. Patient reports chest tightness, wraps around her back. And shortness of breath that is intermittent patient has no complaints at this time. Patient did call the barn operator on-call Dr. Alvarado he went over her echo which the patient stated was normal except for an irregular heartbeat and he told her if she kept having symptoms to come in and be checked out further. 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 2005 Encounter for screening for other viral diseases Fibromyalgia Good's disease High risk medication use High risk medication use History of blood clots History of OK (myocardial infarction) Hypertension Immunization counseling Inflammatory arthritis Injury of left shoulder Insomnia Joint pain MRSA infection cut out infection on abdomen 2005 Seronegative rheumatoid arthritis of both hands Surgical History H/O spinal fusion c3/4, c4/5, c5/6 H/O thyroidectomy x2 History of cholecystectomy History of elbow surgery bilateral x2 History of hand surgery bilateral x3 each History of hysterectomy with BSO History of lumbosacral spine surgery Cage C6 C7 Family History Other CAD (coronary artery disease) Cancer Chronic kidney disease (CKD) Hypertension Leukemia Rheumatoid arthritis Stroke Denies family history of Hyperlipidemia Systemic lupus erythematosus (SLE) in adult Lung disease Social History Smoking and tobacco status: never smoked Second hand smoke exposure: Yes Smoking risk assessment/counseling performed?: Yes Alcohol intake: current Alcohol intake frequency: few times a week Alcohol type: wine Desire information about alcohol rehabilitation?: No Substance/Drug Use: never Lives independently: Yes Household members: spouse Housing: House Marital status: Current occupational status: employed Current occupation: [employer] Pets and animals: Yes Do you think of yourself as: Straight/Heterosexual Current gender identity: Female Special [place] needs: No Physical Exam Const: COMMON NORMALS: no acute distress, average body habitus, patient oriented x3, no limitations, healthy appearing, alert and well nourished HENMT: COMMON NORMALS: normocephalic, atraumatic, hearing grossly normal bilaterally, external ears normal, Normal external nose present and moist oral mucous membranes HEAD & SCALP: normocephalic and atraumatic NOSE: Normal external nose present EXTERNAL EAR: Yes external ears normal Eye: COMMON NORMALS: Equal, round and reactive pupils present, EOMs intact bilaterally, conjunctivae normal and no scleral icterus CONJUNCTIVA: Yes conjunctivae normal PUPIL: Yes Equal, round and reactive pupils present Neck/C-Spine: COMMON NORMALS: full ROM, no lymphadenopathy, supple, no meningeal signs, no JVD and Thyroid normal THYROID: Thyroid normal Chest: COMMONS NORMALS: normal inspection of the chest and normal palpation of entire chest wall Resp: COMMON NORMALS: normal respiratory effort, No retractions, No use of accessory muscles and clear to auscultation bilaterally AUSCULTATION: clear to auscultation bilaterally Cardio: COMMON NORMALS: no JVD, regular rate, regular rhythm, S1 normal heart sound present, S2 normal heart sound present, No gallops present (Cardio), No clicks present (Cardio), No murmurs present (Cardio) and No rub (Cardio) RATE: regular rate RHYTHM: regular rhythm HEART SOUNDS: S1 normal heart sound present and S2 normal heart sound present GI: COMMON NORMALS: Normal to inspection, nondistended, normoactive bowel sounds present, Soft to palpation, non-tender, No hepatosplenomegaly present and no masses PALPATION: Yes Soft to palpation and Yes No hepatosplenomegaly present : COMMON NORMALS: Yes no CVA tenderness BLADDER/KIDNEY EXAM: Yes no CVA tenderness Back/Pelvis: COMMON NORMALS: no CVA tenderness Neuro: COMMON NORMALS: patient oriented x3 SENSORIUM/ORIENTATION: Yes alert MENINGEAL SIGNS: Yes no meningeal signs Course Vital Signs: Vital signs: Vital Signs Temperature 97.9 F 09/11/22 11:37 Pulse Rate 90 09/11/22 14:07 Respiratory Rate 18 09/11/22 14:07 Blood Pressure 107/76 09/11/22 14:07 Pulse Oximetry 94 09/11/22 14:07 Oxygen Delivery Me thod Room Air 09/11/22 14:07 MDM - General Adult Medical Decision Making Patient presents to the ER with complaints of chest pain and high blood pressure but also drops and shortness of breath. Patient had a chest pain work-up in the included serial EKGs and serial troponins all of which are essentially benign. Is thought that her chest pain is not cardiac in nature. Patient will be referred back to her PCP and/or barn operator for further work-up. Differential Diagnosis Chest pain, hypertension, chest wall pain pain, hypotension, Medical Records I reviewed the patient's medical records. Lab Data I reviewed the patient's lab results. 09/11/22 12:23 09/11/22 12:23 Radiology Impressions Chest X-Ray 09/11/22 12:08 IMPRESSION: No acute findings. Laboratory Results WBC 4.5 10^3/uL (4.0-10.0) 09/11/22 12:23 RBC 4.17 10^6/uL (4.1-5.3) 09/11/22 12:23 Hgb 12.5 g/dL (11.5-15.3) 09/11/22 12:23 Hct 39.2 % (37.0-47.0) 09/11/22 12:23 MCV 94.0 fl (81-99) 09/11/22 12:23 MCH 30.0 pg (28.0-34.0) 09/11/22 12: MCHC 31.9 g/dL (30.0-36.0) 09/11/22 12:23 RDW 11.7 % (12.1-15.1) L 09/11/22 12:23 Plt Count 250 10^3/cmm (130-400) 09/11/22 12:23 MPV 10.1 fL (7.4-10.4) 09/11/22 12:23 Neut % (Auto) 54.4 % 09/11/22 12:23 Lymph % (Auto) 32.2 % 09/11/22 12:23 [place] % (Auto) 9.7 % 09/11/22 12:23 Eos % (Auto) 2.6 % 09/11/22 12:23 Baso % (Auto) 0.9 % 09/11/22 12:23 Neut # (Auto) 2.46 10^3/uL (1.8-7.7) 09/11/22 12:23 Lymph # (Auto) 1.5 10^3/uL (0.8-4.8) 09/11/22 12:23 [place] # (Auto) 0.4 10^3/uL (0.2-0.9) 09/11/22 12:23 Eos # (Auto) 0.1 10^3/uL (0.0-0.8) 09/11/22 12:23 Baso # (Auto) 0.0 10^3/uL (0.0-0.1) 09/11/22 12:23 Nucleated RBC % (auto) 0 % 09/11/22 12: Nucleated RBCs # 0.0 /100WBC 09/11/22 12:23 Sodium 138 mmol/L (136-145) 09/11/22 12:23 Potassium 4.0 mmol/L (3.5-5.1) 09/11/22 12:23 Chloride 104 mmol/L (98-107) 09/11/22 12: Carbon Dioxide 21 mmol/L (22-29) L 09/11/22 12:23 Anion Gap 17.0 (5-19) 09/11/22 12:23 BUN 11 mg/dL (6-20) 09/11/22 12:23 Creatinine 0.8 mg/dL (0.5-0.9) 09/11/22 12:23 GFR Calculation 74.5 mL/min (90-130) L 09/11/22 12:23 Glucose 83 mg/dL (65-115) 09/11/22 12:23 Calculated Osmolality 285 mOsm/kg (285-295) 09/11/22 12:23 Calcium 8.8 mg/dL (8.5-10.5) 09/11/22 12:23 Magnesium 2.0 mg/dL (1.7-2.3) 09/11/22 12:23 Total Bilirubin 0.2 mg/dL (0.15-1.2) 09/11/22 12:23 AST 19 U/L (0-32) 09/11/22 12:23 ALT 19 U/L (0-33) 09/11/22 12:23 Alkaline Phosphatase 53 U/L (35-105) 09/11/22 12:23 Troponin T Baseline 6 ng/L (0-10) 09/11/22 12:23 Troponin T 120 Minute 6.00 ng/L (0-10) 09/11/22 14:33 Total Protein 6.3 g/dL (6.6-8.7) L 09/11/22 12:23 Albumin 4.2 g/dL (3.5-5.2) 09/11/22 12:23 Globulin 2.1 g/dL (1.3-4.6) 09/11/22 12:23 Urine Color Yellow (Yellow) 09/11/22 13:10 Urine Appearance Clear (CLEAR) 09/11/22 13:10 Urine pH 5 (5-7) 09/11/22 13:10 Ur Specific [place] 1.020 (1.005-1.030) 09/11/22 13:10 Urine Protein Neg (Negative) 09/11/22 13:10 Urine Glucose (UA) Norm (Normal) 09/11/22 13:10 Urine Ketones Negative (Negative) 09/11/22 13:10 Urine Blood Neg (Negative) 09/11/22 13:10 Urine Nitrate Negative (Negative) 09/11/22 13:10 Urine Bilirubin Neg (Negative) 09/11/22 13:10 Urine Urobilinogen Norm mg/dL (Negative) 09/11/22 13:10 Ur Leukocyte Esterase Negative (Negative) 09/11/22 13:10 EKG Data EKG 1: I personally reviewed and interpreted this EKG as follows: EKG interpretation date: 09/11/22 EKG interpretation time: 12:29 Prior EKG tracings: not available for review Interpretation: EKG showed ventricular rate 72 beats minute, NV interval 204, QRS duration 82, QTc 388, sinus rhythm, Q waves in V3 and V4, Computer generated interpretation: Chest X-Ray 09/11/22 12:08 IMPRESSION: No acute findings. EKG 2: I personally reviewed and interpreted this EKG as follows: EKG interpretation date: 09/11/22 EKG interpretation time: 14:18 Prior EKG tracings: available for review Interpretation: EKG shows ventricular rate 76 bpm, NV interval 208, QRS duration 78, QTc 390, sinus rhythm, Q waves 2 and aVF, and V1 through V4. Computer generated interpretation: Chest X-Ray 09/11/22 12:08 IMPRESSION: No acute findings. Discharge Plan Discharge Patient Disposition: Home Clinical Impression: Non-cardiac chest pain Hypertension Qualifiers: Hypertension type: unspecified Qualified Code(s): I10 - Essential (primary) hypertension Condition: Stable Prescriptions: No Action albuterol sulfate 2.5 mg /3 mL (0.083 %) solution for nebulization 2.5 mg INHALATION Q4H PRN (Reason: shortness of breath or wheezing) Qty: 75 0RF Rx Instructions: dispense 1 box levothyroxine 100 mcg tablet See Rx Instructions PO DAILY Qty: 112 3RF Rx Instructions: 1 tab (100mcg) po daily on tue,,tue,,tue, and tue and take 2 tabs (200mcg) po on tuesday prednisone 20 mg tablet See Rx Instructions PO .COMPLEX 5 Days Qty: 5 0RF Rx Instructions: take 1 tab daily for 3-7 days prn joint pain flare nitroglycerin 0.4 mg tablet, sublingual 0.4 mg sublingual Q5M PRN (Reason: chest pain) Qty: 25 1RF Rx Instructions: do not exceed 3 doses per episode leflunomide 20 mg tablet 20 mg PO QAM Qty: 30 3RF Rx Instructions: (pt states not started as of 09/11/22) hydroxychloroquine 200 mg tablet 200 mg PO BID Qty: 60 3RF Rx Instructions: (pt states not started as of 09/11/22) alprazolam 0.5 mg tablet 0.5 mg PO BEDTIME Qty: 30 2RF Victoza 3-Christopher 0.6 mg/0.1 mL (18 mg/3 mL) pen injector 1.8 mg SUBCUT QAM isosorbide mononitrate 30 mg tablet extended release 24 hr 15 mg PO QAM atorvastatin 40 mg tablet 40 mg PO DAILY aspirin [Aspir-81] 81 mg Tablet,Delayed Release (Dr/Ec) 81 mg PO QAM albuterol sulfate [ProAir HFA] 90 mcg/actuation Hfa Aerosol Inhaler 2 puff INHALATION Q6H PRN (Reason: Shortness Of Breath) famotidine [Pepcid] 20 mg tablet 20 mg PO DAILY PRN (Reason: Acid Reflux) losartan 25 mg tablet 25 mg PO QAM folic acid 1 mg tablet 1 mg PO QAM montelukast [Singulair] 10 mg tablet 10 mg PO QAM cyanocobalamin (vitamin B-12) 2,000 mcg tablet 2,000 mcg PO QAM Discharge Orders: Discharge ED (Routine); Ordered 09/11/22 Ordered By: Maikel Price Referrals: Mamadou Giles NP [Primary Care Provider] - 1 week Patient Instructions: Chest Pain - Noncardiac Activity Restrictions/Additional Instructions: Your chest pain work-up come back normal. This is a sign that your chest pain may not be cardiac in nature. Please follow-up with your family practice physician and/or barn operator as this may warrant further evaluation and testing. Coding Level of Care Code ED Recycling Manager for Adela Smith
--- NOTE | 2022-09-11 12:29 | ECG_ITS ---
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 Measurements Intervals [place] Rate: 72 P: 31 MS: 204 QRS: -10 QRSD: 82 T: 26 QT: 365 QTc: 399 Interpretive Statements SINUS RHYTHM LOW QRS VOLTAGE IN PRECORDIAL LEADS [QRS DEFLECTION < 1.0 mV IN CHEST LEADS] POSSIBLE ANTERIOR MYOCARDIAL INFARCTION , PROBABLY OLD [30 ms Q WAVE IN V3/V4, OR R < 0.2 mV IN V4] Compared to ECG 01/21/2020 14:59:01 No significant changes Electronically Signed On 09-11-2022 15:55:20 CDT by Key Alvarado M.D. [id number]
[2022-09-11 12:46] LABS: Basophils % 0.9 %; Eosinophils # 0.1 10^3/uL (0.0-0.8); Eosinophils % 2.6 %; Hematocrit 39.2 % (37.0-47.0); Hemoglobin 12.5 g/dL (11.5-15.3); Lymphocytes # 1.5 10^3/uL (0.8-4.8); Lymphocytes % 32.2 %; Mean Corpuscular HGB Conc 31.9 g/dL (30.0-36.0); Mean Platelet Volume 10.1 fL (7.4-10.4); Monocytes # 0.4 10^3/uL (0.2-0.9); Monocytes % 9.7 %; Neutrophils # 2.46 10^3/uL (1.8-7.7); Neutrophils % 54.4 %; Nucleated Red Blood Cells % 0 %; Platelet Count 250 10^3/cmm (130-400); Red Blood Count 4.17 10^6/uL (4.1-5.3); Red Cell Distribution Width 11.7 % (12.1-15.1); White Blood Count 4.5 10^3/uL (4.0-10.0)
[2022-09-11 12:52] LABS: Troponin(5th) Baseline 6 ng/L (0-10)
[2022-09-11 12:55] LABS: Alanine Aminotransferase 19 U/L (0-33); Albumin Level 4.2 g/dL (3.5-5.2); Alkaline Phosphatase 53 U/L (35-105); Aspartate Amino Transferase 19 U/L (0-32); Blood Urea Nitrogen 11 mg/dL (6-20); Calcium 8.8 mg/dL (8.5-10.5); Carbon Dioxide 21 mmol/L (22-29); Chloride 104 mmol/L (98-107); Globulin 2.1 g/dL (1.3-4.6); Glomerular Filtration Rate 74.5 mL/min (90-130); Glucose 83 mg/dL (65-115); Osmolality Calculated 285 mOsm/kg (285-295); Sodium 138 mmol/L (136-145); Total Bilirubin 0.2 mg/dL (0.15-1.2); Total Protein 6.3 g/dL (6.6-8.7)
[2022-09-11 13:18] LABS: Add Urine Microscopic? NO; Charge for UA Resulting for Rev
[2022-09-11 13:28] LABS: Bilirubin Urine Neg (Negative); Blood Urine Neg (Negative); Glucose Urine UA Norm (Normal); Ketones Urine Negative (Negative); Leukocyte Esterase Urine Negative (Negative); Nitrate Urine Negative (Negative); Protein Urine Neg (Negative); Urine Appearance Clear (CLEAR); Urine Color Yellow (Yellow); Urobilinogen Urine Norm (Negative); pH Urine 5 (5-7)
[2022-09-11 14:07] VITALS: BP 107/76; PULSE 90; RESP 18; O2SAT 94
--- NOTE | 2022-09-11 14:08 | ECG_ITS ---
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 Measurements Intervals [place] Rate: 76 P: 30 MN: 208 QRS: -14 QRSD: 78 T: 30 QT: 360 QTc: 405 Interpretive Statements SINUS RHYTHM LOW QRS VOLTAGE IN PRECORDIAL LEADS [QRS DEFLECTION < 1.0 mV IN CHEST LEADS] INFERIOR MYOCARDIAL INFARCTION , PROBABLY OLD [40+ ms Q WAVE AND/OR ST/T ABNORMALITY IN II/aVF] ANTEROSEPTAL MYOCARDIAL INFARCTION , OF INDETERMINATE AGE [40+ ms Q WAVE IN V1-V4] Compared to ECG 09/11/2022 12:29:36 No significant changes Electronically Signed On 09-11-2022 15:59:08 CDT by Key Alvarado M.D. [id number]
[2022-09-11 15:36] LABS: Troponin 5 2HR Delta 0 ABS# (0-10)
== END 2022-09-11 15:40 | disposition home or self-care (01) ==
PROVIDERS: Emergency Provider Emergency Medicine; PCP Clinical Nurse Specialist Adult Health
DX: R07.9 Chest pain, unspecified (principal); Z79.899 Other long term (current) drug therapy
CPT/HCPCS: 36415; 71045; 80053; 81003; 83735; 84484; 85025; 93005; 99285

== ENCOUNTER 2022-11-23 15:35 | Outpatient (CLI) | payer BC, SELFPAY ==
[2022-11-23 16:28] LABS: Free T4 Free Thyroxine 1.54 ng/dL (0.82-1.77); Thyroid Stimulating Hormone 1.87 uIU/mL (0.27-4.20)
== END 2022-11-23 15:36 | disposition home or self-care (01) ==
LOC: LAB 15:37
PROVIDERS: PCP Clinical Nurse Specialist Adult Health; Visit Provider Internal Medicine
DX: E03.9 Hypothyroidism, unspecified (principal); E66.01 Morbid (severe) obesity due to excess calories; Z68.41 Body mass index [BMI] 40.0-44.9, adult
CPT/HCPCS: 36415; 84439; 84443

== ENCOUNTER 2022-12-23 15:21 | Outpatient (CLI) | payer BC, SELFPAY ==
--- NOTE | 2022-12-23 15:35 | MM_ITS ---
WS: [id number] SCREENING DIGITAL TOMOSYNTHESIS MAMMOGRAM WITH CAD HISTORY: SCREENING COMPARISON: 12/18/2021 and 11/07/2020 Bilateral CC and MLO with tomosynthesis views submitted. Synthetic mammography reviewed. Computer aid ed detection analyzed. Breast composition: The breasts are almost entirely fatty. No suspicious masses, microcalcifications or architectural distortion. IMPRESSION: MM/[place] [id number] BI-RADS: 1-Negative FOLLOW UP: 1 Year Follow-up
[2022-12-23 16:18] LABS: Basophils # 0.1 10^3/uL (0.0-0.1); Basophils % 0.9 %; Eosinophils # 0.2 10^3/uL (0.0-0.8); Eosinophils % 3.6 %; Hematocrit 39.9 % (36-47); Lymphocytes # 2.2 10^3/uL (0.8-4.8); Lymphocytes % 40.2 %; Mean Corpuscular HGB Conc 33.3 g/dL (30-55); Mean Corpuscular Hemoglobin 30.5 pg (27-33); Mean Corpuscular Volume 91.5 fl (85-98); Mean Platelet Volume 9.6 fL (7.4-10.4); Monocytes # 0.5 10^3/uL (0.2-0.9); Monocytes % 9.3 %; Neutrophils # 2.45 10^3/uL (1.8-7.7); Neutrophils % 45.8 %; Nucleated Red Blood Cells % 0 %; Platelet Count 286 10^3/cmm (157-399); Red Blood Count 4.36 10^6/uL (3.85-5.65); Red Cell Distribution Width 12.3 % (12.1-15.1); White Blood Count 5.35 10^3/uL (3.29-11.43)
[2022-12-23 17:04] LABS: Alanine Aminotransferase 17 U/L (0-33); Albumin Level 4.5 g/dL (3.5-5.2); Alkaline Phosphatase 55 U/L (35-105); Aspartate Amino Transferase 18 U/L (0-32); Globulin 2.6 g/dL (1.3-4.6); Glomerular Filtration Rate 86.9 mL/min (90-130); Total Bilirubin 0.3 mg/dL (0.15-1.2); Total Protein 7.1 g/dL (6.6-8.7)
== END 2022-12-23 15:22 | disposition home or self-care (01) ==
LOC: RAD 15:26
PROVIDERS: Internal Medicine Rheumatology; PCP Clinical Nurse Specialist Adult Health; Visit Provider Clinical Nurse Specialist Adult Health
DX: Z12.31 Encounter for screening mammogram for malignant neoplasm of breast (principal); M06.041 Rheumatoid arthritis without rheumatoid factor, right hand; M06.042 Rheumatoid arthritis without rheumatoid factor, left hand; Z79.899 Other long term (current) drug therapy
CPT/HCPCS: 77063; 77067; 80076; 82565; 85025; 86140

== ENCOUNTER → 2023-01-06 13:25 | Outpatient (BNVA) | payer BC, SELFPAY | PROVIDERS: PCP Clinical Nurse Specialist Adult Health; Visit Provider Clinical Nurse Specialist Adult Health | DX: R10.31 Right lower quadrant pain (principal); G47.00 Insomnia, unspecified | CPT/HCPCS: 80074 ==

== ENCOUNTER 2023-01-11 08:07 | Outpatient (CLI) | payer BC, SELFPAY ==
--- NOTE | 2023-01-11 08:45 | US_ITS ---
WS: [id number] RIGHT UPPER QUADRANT ULTRASOUND HISTORY: RLQ pain, abnormal CT COMPARISON: CT 06/16/2022 Liver: 16.1 cm in length. Normal size liver and echogenicity. No bile duct dilatation or mass. Portal Vein: Normal hepatopetal flow with monophasic waveform. Gallbladder: Prior cholecystectomy. CBD: 0.4 cm Pancreas: Poorly visualized. Right kidney: 11.2 cm in length. Normal size kidney. Echogenic focus in the superior pole measures 6 mm. Probably representing a small angiomyolipoma. No renal obstruction. Aorta and IVC: Unremarkable abdominal aorta and IVC. No ascites. IMPRESSION: 1. Negative liver. No mass or bile duct dilatation. 2. Prior cholecystectomy. 3. Echogenic focus in the RIGHT kidney is probably an angiomyolipoma.
== END 2023-01-11 08:08 | disposition home or self-care (01) ==
PROVIDERS: PCP Clinical Nurse Specialist Adult Health; Visit Provider Clinical Nurse Specialist Adult Health
DX: R10.31 Right lower quadrant pain (principal); R93.2 Abnormal findings on diagnostic imaging of liver and biliary tract; Z90.49 Acquired absence of other specified parts of digestive tract
CPT/HCPCS: 76705

== ENCOUNTER 2023-02-23 16:31 | Outpatient (CLI) | payer BC, SELFPAY ==
[2023-02-23 17:25] LABS: Thyroid Stimulating Hormone 2.07 uIU/mL (0.27-4.20)
[2023-02-23 19:47] LABS: Free T4 Free Thyroxine 1.49 ng/dL (0.82-1.77)
== END 2023-02-23 16:32 | disposition home or self-care (01) ==
LOC: LAB 16:32
PROVIDERS: PCP Clinical Nurse Specialist Adult Health; Visit Provider Internal Medicine
DX: E03.9 Hypothyroidism, unspecified (principal); E66.01 Morbid (severe) obesity due to excess calories; Z68.41 Body mass index [BMI] 40.0-44.9, adult
CPT/HCPCS: 36415; 84439; 84443

== ENCOUNTER → 2023-05-09 08:02 | Outpatient (BNVA) | payer BC, SELFPAY | PROVIDERS: PCP Clinical Nurse Specialist Adult Health; Visit Provider Clinical Nurse Specialist Adult Health | DX: J06.9 Acute upper respiratory infection, unspecified (principal) | CPT/HCPCS: 87400; 87880 ==

== ENCOUNTER 2023-05-24 15:22 | Outpatient (CLI) | payer BC, SELFPAY ==
[2023-05-24 16:17] LABS: Basophils % 0.5 %; Eosinophils # 0.2 10^3/uL (0.0-0.8); Eosinophils % 1.8 %; Hematocrit 39.4 % (36-47); Lymphocytes # 2.5 10^3/uL (0.8-4.8); Lymphocytes % 30.8 %; Mean Corpuscular HGB Conc 32.7 g/dL (30-55); Mean Corpuscular Hemoglobin 29.5 pg (27-33); Monocytes # 0.7 10^3/uL (0.2-0.9); Neutrophils # 4.78 10^3/uL (1.8-7.7); Neutrophils % 58.5 %; Nucleated Red Blood Cells % 0 %; Platelet Count 298 10^3/cmm (157-399); Red Blood Count 4.38 10^6/uL (3.85-5.65); Red Cell Distribution Width 12.5 % (12.1-15.1); White Blood Count 8.17 10^3/uL (3.29-11.43)
[2023-05-24 16:37] LABS: Estmated Average Glucose 105; Hemoglobin A1C 5.3 % (4.0-6.0)
[2023-05-24 17:01] LABS: Alanine Aminotransferase 20 U/L (0-33); Albumin Level 3.9 g/dL (3.5-5.2); Alkaline Phosphatase 60 U/L (35-105); Aspartate Amino Transferase 18 U/L (0-32); Blood Urea Nitrogen 13 mg/dL (6-20); Calcium 8.4 mg/dL (8.5-10.5); Carbon Dioxide 23 mmol/L (22-29); Chloride 101 mmol/L (98-107); Chol HDL Ratio 3.22 mg/dL (0.0-4.40); Cholesterol 206 mg/dL (0-200); Free T4 Free Thyroxine 1.57 ng/dL (0.82-1.77); Glomerular Filtration Rate 86.9 mL/min (90-130); Glucose 80 mg/dL (65-115); HDL Cholesterol 64 mg/dL (60-100); LDL Cholesterol Calculated 122 mg/dL (50-129); LDL HDL Ratio 1.91 RATIO (0.00-3.22); Osmolality Calculated 281 mOsm/kg (285-295); Sodium 136 mmol/L (136-145); Thyroid Stimulating Hormone 1.55 uIU/mL (0.27-4.20); Total Bilirubin 0.2 mg/dL (0.15-1.2); Total Protein 6.9 g/dL (6.6-8.7); Triglycerides 99 mg/dL (0-150)
[2023-05-24 17:10] LABS: Calcium 8.8 mg/dL (8.5-10.5)
[2023-05-24 17:17] LABS: Parathyroid Hormone 47.8 pg/mL (15-65)
[2023-05-24 20:40] LABS: 25 Hydroxy Vitamin D 21 ng/mL (30-100); Ferritin 390 ng/mL (15-150); Iron 44 ug/dL (37-145); Percent Saturation 16.7 % (20-50); Total Iron Binding Capacity 262 mcg/dl; Unsaturated Iron Binding 218 ug/dL (112-347); Vitamin B12 305 pg/mL (232-1245)
[2023-05-28 19:19] LABS: Cotinine, Urine <2 ng/mL; Nicotine, Urine <2 ng/mL
== END 2023-05-24 15:23 | disposition home or self-care (01) ==
LOC: LAB 15:27
PROVIDERS: PCP Clinical Nurse Specialist Adult Health; Visit Provider Nurse Practitioner Adult Health
DX: E03.9 Hypothyroidism, unspecified (principal); Z68.36 Body mass index [BMI] 36.0-36.9, adult; G47.33 Obstructive sleep apnea (adult) (pediatric); M19.90 Unspecified osteoarthritis, unspecified site; I10 Essential (primary) hypertension
CPT/HCPCS: 36415; 80053; 80061; 80323; 82306; 82310; 82607; 82728; 83036; 83540; 83550; 83970; 84439; 84443; 85025

== ENCOUNTER → 2023-11-17 11:45 | Outpatient (BNVA) | payer BC, SELFPAY | PROVIDERS: PCP Clinical Nurse Specialist Adult Health; Visit Provider Internal Medicine Rheumatology | DX: Z79.899 Other long term (current) drug therapy (principal); Z11.59 Encounter for screening for other viral diseases; M06.041 Rheumatoid arthritis without rheumatoid factor, right hand; M06.042 Rheumatoid arthritis without rheumatoid factor, left hand; M54.9 Dorsalgia, unspecified; M47.896 Other spondylosis, lumbar region | CPT/HCPCS: 36415; 72100; 80076; 82565; 85025; 85651; 86140; 86480; 86704; 86803; 87340 ==

== ENCOUNTER 2024-02-07 14:55 | Outpatient (CLI) | payer BC, SELFPAY ==
[2024-02-07 15:34] LABS: Basophils % 0.8 %; Eosinophils # 0.1 10^3/uL (0.0-0.8); Eosinophils % 2.7 %; Hematocrit 40.2 % (36-47); Mean Corpuscular HGB Conc 33.8 g/dL (30-55); Mean Corpuscular Volume 88.7 fl (85-98); Monocytes # 0.4 10^3/uL (0.2-0.9); Monocytes % 8.7 %; Neutrophils # 2.24 10^3/uL (1.8-7.7); Neutrophils % 46.6 %; Nucleated Red Blood Cells % 0 %; Platelet Count 259 10^3/cmm (157-399); Red Blood Count 4.53 10^6/uL (3.85-5.65); Red Cell Distribution Width 11.7 % (12.1-15.1); White Blood Count 4.81 10^3/uL (3.29-11.43)
[2024-02-07 15:42] LABS: Erythrocyte Sedimentation Rate 9 mm/hr (0-15)
[2024-02-07 16:21] LABS: Alanine Aminotransferase 23 U/L (0-33); Albumin Level 4.4 g/dL (3.5-5.2); Alkaline Phosphatase 59 U/L (35-105); Aspartate Amino Transferase 22 U/L (0-32); Globulin 2.3 g/dL (1.3-4.6); Glomerular Filtration Rate 86.6 mL/min (90-130); Total Bilirubin 0.3 mg/dL (0.15-1.2); Total Protein 6.7 g/dL (6.6-8.7)
[2024-02-07 20:34] LABS: Free T4 Free Thyroxine 1.48 ng/dL (0.82-1.77)
== END 2024-02-07 14:56 | disposition home or self-care (01) ==
LOC: LAB 14:57
PROVIDERS: PCP Clinical Nurse Specialist Adult Health; Visit Provider Internal Medicine Rheumatology
DX: M06.041 Rheumatoid arthritis without rheumatoid factor, right hand (principal); M06.042 Rheumatoid arthritis without rheumatoid factor, left hand; Z79.899 Other long term (current) drug therapy; E89.0 Postprocedural hypothyroidism
CPT/HCPCS: 36415; 80076; 82565; 84439; 84443; 85025; 85651; 86140

== ENCOUNTER → 2024-04-27 11:39 | Outpatient (BNVA) | payer BC, SELFPAY | PROVIDERS: PCP Clinical Nurse Specialist Adult Health; Visit Provider Clinical Nurse Specialist Adult Health | DX: J06.9 Acute upper respiratory infection, unspecified (principal) | CPT/HCPCS: 87400; 87426 ==

== ENCOUNTER 2024-10-24 16:07 | Outpatient (CLI) | payer BC, SELFPAY ==
--- NOTE | 2024-10-24 16:16 | XR_ITS ---
WS: [id number] Right foot, 3 views, 10/24/2024 Clinical Data: M79.673 - Pain in unspecified foot Comparison: Right foot, 07/26/2019 Findings: No fractures or dislocations are seen. No bone destruction or erosion is noted. The joint spaces and soft tissues are normal. There is a plantar spur. XR/XR foot RT min 3V* [id number] Impression: Negative right foot.
--- NOTE | 2024-10-24 16:16 | XR_ITS ---
WS: [id number] Left foot, 3 views, 10/24/2024 Clinical Data: M79.673 - Pain in unspecified foot Comparison: Left foot, 07/26/2019 Findings: No fractures or dislocations are seen. No bone destruction or erosion is noted. The joint spaces and soft tissues are normal. There is a plantar spur. XR/XR foot LT min 3V* [id number] Impression: Negative left foot.
== END 2024-10-24 16:08 | disposition home or self-care (01) ==
PROVIDERS: PCP Clinical Nurse Specialist Adult Health; Visit Provider Internal Medicine Rheumatology
DX: M79.672 Pain in left foot (principal); M79.671 Pain in right foot; M77.32 Calcaneal spur, left foot; M77.31 Calcaneal spur, right foot
CPT/HCPCS: 73630

== ENCOUNTER 2024-11-22 15:09 | Outpatient (RCR) | payer BC, SELFPAY | END 2024-12-11 23:59 | disposition home or self-care (01) | LOC: SPT 15:09 | PROVIDERS: PCP Clinical Nurse Specialist Adult Health; Visit Provider Podiatrist Foot & Ankle Surgery | DX: M72.2 Plantar fascial fibromatosis (principal) | CPT/HCPCS: 97140; 97161 ==

== ENCOUNTER 2024-12-12 05:00 | Outpatient (RCR) | payer BC, SELFPAY | END 2025-01-11 23:59 | disposition home or self-care (01) | LOC: SPT 05:00 | PROVIDERS: PCP Family Medicine; Visit Provider Podiatrist Foot & Ankle Surgery | DX: M72.2 Plantar fascial fibromatosis (principal) | CPT/HCPCS: 97140 ==

== ENCOUNTER 2025-01-12 06:30 | Outpatient (RCR) | payer BC, SELFPAY | END 2025-02-04 08:28 | disposition home or self-care (01) | LOC: SPT 06:30 | PROVIDERS: PCP Family Medicine; Visit Provider Podiatrist Foot & Ankle Surgery | DX: M72.2 Plantar fascial fibromatosis (principal) | CPT/HCPCS: 97140 ==